=== PATIENT | female | born 1940 | race Caucasian/White ===

== ENCOUNTER 2017-04-28 08:31 | Outpatient (CLI) | payer MEDICARE, MEDICAID ==
[~2017-04-28 08:31] MED LIST: ALBU8.5H8 IH; ATEN25TA PO; BECL7.3A INH; BUSP10TA10 PO; DOCU100C40 PO; DULO20CA50 PO; HYDR-3972 PO; HYDR-569 PO; ISOS30TA6 PO; NICO-687 TD; NITR0.4T SL; ONDA4TAB6 PO; PANT-47 PO; SIMV40TA4 PO; SPIIN INH; SUCR1TAB34 PO; TEMA15CA5 PO; TRAZ-143 PO
[2017-04-28 09:12] LABS: BASOPHILS % (AUTO) 0.7 % (0-1); EOSINOPHILS # (AUTO) 0.2 X10'3 (0-0.9); EOSINOPHILS % (AUTO) 3.4 % (0-6); HEMOGLOBIN 8.9 g/dl (12.0-16.0); LYMPHOCYTES # (AUTO) 0.6 X10'3 (1.1-4.8); LYMPHOCYTES % (AUTO) 12.8 % (21-51); MEAN CORPUSCULAR HEMOGLOBIN 22.9 PG (27.0-31.0); MEAN CORPUSCULAR HGB CONC 30.8 % (33.0-36.5); MEAN CORPUSCULAR VOLUME 74.1 FL (78-98); MEAN PLATELET VOLUME 6.9 FL (7.4-10.4); MONOCYTES # (AUTO) 0.3 X10'3 (0-0.9); MONOCYTES % (AUTO) 7.2 % (2-12); NEUTROPHILS # (AUTO) 3.6 X10'3 (1.8-7.7); NEUTROPHILS % (AUTO) 75.9 % (42-75); PLATELET COUNT 351 X10'3 (140-440); RED BLOOD COUNT 3.91 X10'6 (4.20-5.60); RED CELL DISTRIBUTION WIDTH 22.9 % (11.5-14.5); WHITE BLOOD COUNT 4.8 X10'3 (4.5-11.0)
[2017-04-28 09:51] LABS: ALANINE AMINOTRANSFERASE 16 U/L (12-78); ALBUMIN 3.4 G/DL (3.4-5.0); ALBUMIN/GLOBULIN RATIO 0.9 (1.1-1.5); ALKALINE PHOSPHATASE 126 IU/L (46-116); ANION GAP 8 (8-16); ASPARTATE AMINO TRANSFERASE 19 U/L (10-37); BILIRUBIN,TOTAL 0.3 MG/DL (0.1-1.0); BLOOD UREA NITROGEN 23 MG/DL (7-18); BUN/CREATININE RATIO 16.9 (6.6-38.0); CALCIUM 9.7 MG/DL (8.5-10.1); CHLORIDE 108 MMOL/L (99-107); CHOL/HDL RATIO 3.4 (0.00-4.99); CHOLESTEROL 199 MG/DL (0-200); CREATININE 1.36 MG/DL (0.40-0.90); FERRITIN 16 NG/ML (8-252); GLUCOSE 125 MG/DL (70-104); HDL CHOLESTEROL 59 MG/DL (35-60); LDL CHOLESTEROL 127 MG/DL (50-100); PHOSPHORUS 3.3 MG/DL (2.3-4.5); SODIUM 141 MMOL/L (135-145); TOTAL CARBON DIOXIDE 24.6 MMOL/L (24-32); TOTAL PROTEIN 7.2 G/DL (6.4-8.2); TRIGLYCERIDES 114 MG/DL (20-135); eGFR 38 ML/MIN
[2017-04-28 10:15] LABS: % IRON SATURATION 5 % (11-46); IRON 21 UG/DL (49-151); TOTAL IRON BINDING CAPACITY 426 UG/DL (259-388)
[2017-04-28 13:47] LABS: CLARITY,URINE SLIGHTLY CLOUDY (Clear); COLOR,URINE YELLOW (Yellow); GLUCOSE, URINE NEGATIVE (Neg); KETONES,URINE NEGATIVE (Neg); LEUKOCYTE ESTERASE ,URINE NEGATIVE (Neg); NITRITES, URINE NEGATIVE (Neg); OCCULT BLOOD,URINE NEGATIVE (Neg); PH,URINE 5.5 (4.8-8.0); PROTEIN,URINE NEGATIVE (Neg); UROBILINOGEN,URINE 0.2 E.U/dL (0.2-1.0)
[2017-04-28 13:49] LABS: UA COLLECTION TYPE CLN CATCH MIDSTREAM
[2017-04-28 13:54] LABS: BACTERIA,URINE 4+ /HPF (Neg); RBC,URINE 0-2 /HPF (0-2); SQUAMOUS EPITHELIAL CELL,UR MODERATE /LPF (FEW); WBC,URINE 0-4 /HPF (0-4)
== END 2017-04-28 23:59 | disposition home or self-care (01) ==
LOC: LAB 08:31
PROVIDERS: ATTEND Family Medicine
DX: K92.2 Gastrointestinal hemorrhage, unspecified (principal); E78.00 Pure hypercholesterolemia, unspecified; J44.9 Chronic obstructive pulmonary disease, unspecified; J45.909 Unspecified asthma, uncomplicated; F17.200 Nicotine dependence, unspecified, uncomplicated; I13.0 Hypertensive heart and chronic kidney disease with heart failure and stage 1 through stage 4 chronic kidney disease, or unspecified chronic kidney disease; I50.9 Heart failure, unspecified; N18.9 Chronic kidney disease, unspecified; Z95.5 Presence of coronary angioplasty implant and graft; Z98.890 Other specified postprocedural states; Z80.8 Family history of malignant neoplasm of other organs or systems; Z90.710 Acquired absence of both cervix and uterus; Z83.49 Family history of other endocrine, nutritional and metabolic diseases
CPT/HCPCS: 36415; 80053; 80061; 81001; 82728; 83540; 83550; 84100; 84466; 85025; 85651; 87088

== ENCOUNTER 2017-08-20 13:19 | Outpatient (CLI) | payer MEDICARE, MEDICAID ==
[2017-08-20 14:31] LABS: BASOPHILS # (AUTO) 0.1 X10'3 (0-0.2); BASOPHILS % (AUTO) 0.9 % (0-1); EOSINOPHILS # (AUTO) 0.2 X10'3 (0-0.9); EOSINOPHILS % (AUTO) 3.9 % (0-6); HEMATOCRIT 32.8 % (35.0-45.0); HEMOGLOBIN 10.9 g/dl (12.0-16.0); LYMPHOCYTES # (AUTO) 1.1 X10'3 (1.1-4.8); LYMPHOCYTES % (AUTO) 18.9 % (21-51); MEAN CORPUSCULAR HEMOGLOBIN 27.4 PG (27.0-31.0); MEAN CORPUSCULAR HGB CONC 33.3 % (33.0-36.5); MEAN CORPUSCULAR VOLUME 82.2 FL (78-98); MEAN PLATELET VOLUME 7.6 FL (7.4-10.4); MONOCYTES # (AUTO) 0.5 X10'3 (0-0.9); MONOCYTES % (AUTO) 7.9 % (2-12); NEUTROPHILS % (AUTO) 68.4 % (42-75); PLATELET COUNT 224 X10'3 (140-440); RED BLOOD COUNT 3.98 X10'6 (4.20-5.60); RED CELL DISTRIBUTION WIDTH 19.8 % (11.5-14.5); WHITE BLOOD COUNT 5.8 X10'3 (4.5-11.0)
[2017-08-20 14:41] LABS: % IRON SATURATION 16 % (11-46); IRON 64 UG/DL (49-151); TOTAL IRON BINDING CAPACITY 399 UG/DL (259-388)
[2017-08-20 15:02] LABS: ALBUMIN 3.4 G/DL (3.4-5.0); ALKALINE PHOSPHATASE 113 IU/L (46-116); ANION GAP 10 (8-16); ASPARTATE AMINO TRANSFERASE 15 U/L (10-37); BILIRUBIN,TOTAL 0.4 MG/DL (0.1-1.0); BLOOD UREA NITROGEN 23 MG/DL (7-18); BUN/CREATININE RATIO 17.3 (6.6-38.0); C-REACTIVE PROTEIN 0.24 MG/DL (0.0-0.5); CALCIUM 9.1 MG/DL (8.5-10.1); CHLORIDE 103 MMOL/L (99-107); CHOL/HDL RATIO 3.5 (0.00-4.99); CHOLESTEROL 191 MG/DL (0-200); CREATININE 1.33 MG/DL (0.40-0.90); FERRITIN 24 NG/ML (8-252); GLUCOSE 74 MG/DL (70-104); HDL CHOLESTEROL 54 MG/DL (35-60); LDL CHOLESTEROL 120 MG/DL (50-100); PHOSPHORUS 3.4 MG/DL (2.3-4.5); POTASSIUM 4.4 MMOL/L (3.5-5.1); SODIUM 138 MMOL/L (135-145); TOTAL CARBON DIOXIDE 24.8 MMOL/L (24-32); TOTAL PROTEIN 6.8 G/DL (6.4-8.2); TRIGLYCERIDES 95 MG/DL (20-135); eGFR 39 ML/MIN
[2017-08-20 15:12] LABS: ALANINE AMINOTRANSFERASE 10 U/L (12-78)
[2017-08-20 16:45] LABS: TOTAL PROTEIN,URINE RANDOM 22.1 MG/DL; UA PROTEIN/CREATININE RATIO 0.19 mg/mg Cr (0-0.16)
== END 2017-08-20 23:59 | disposition home or self-care (01) ==
LOC: LAB 13:19
PROVIDERS: ATTEND Family Medicine
DX: M17.9 Osteoarthritis of knee, unspecified (principal); I13.0 Hypertensive heart and chronic kidney disease with heart failure and stage 1 through stage 4 chronic kidney disease, or unspecified chronic kidney disease; N18.9 Chronic kidney disease, unspecified; I50.9 Heart failure, unspecified; I25.10 Atherosclerotic heart disease of native coronary artery without angina pectoris; E78.5 Hyperlipidemia, unspecified; E78.00 Pure hypercholesterolemia, unspecified; K21.9 Gastro-esophageal reflux disease without esophagitis; K52.9 Noninfective gastroenteritis and colitis, unspecified; R63.4 Abnormal weight loss; M85.88 Other specified disorders of bone density and structure, other site; R42 Dizziness and giddiness; J44.9 Chronic obstructive pulmonary disease, unspecified; Z87.891 Personal history of nicotine dependence
CPT/HCPCS: 36415; 80053; 80061; 82043; 82306; 82570; 82607; 82728; 82746; 83540; 83550; 84100; 84156; 84466; 84550; 85025; 85651; 86140

== ENCOUNTER 2017-09-01 14:15 | Inpatient (IN) | payer MEDICARE, MEDICAID ==
[~2017-09-01] VITALS: Ht 165.1 cm; Wt 63.0 kg
[2017-09-01 15:29] LABS: BASOPHILS % (AUTO) 0.6 % (0-1); EOSINOPHILS # (AUTO) 0.2 X10'3 (0-0.9); EOSINOPHILS % (AUTO) 2.8 % (0-6); HEMATOCRIT 34.1 % (35.0-45.0); HEMOGLOBIN 11.1 g/dl (12.0-16.0); LYMPHOCYTES # (AUTO) 1.3 X10'3 (1.1-4.8); LYMPHOCYTES % (AUTO) 17.4 % (21-51); MEAN CORPUSCULAR HEMOGLOBIN 27.4 PG (27.0-31.0); MEAN CORPUSCULAR HGB CONC 32.6 % (33.0-36.5); MEAN CORPUSCULAR VOLUME 83.9 FL (78-98); MEAN PLATELET VOLUME 7.2 FL (7.4-10.4); MONOCYTES # (AUTO) 0.7 X10'3 (0-0.9); NEUTROPHILS # (AUTO) 5.2 X10'3 (1.8-7.7); NEUTROPHILS % (AUTO) 70.2 % (42-75); PLATELET COUNT 229 X10'3 (140-440); RED BLOOD COUNT 4.06 X10'6 (4.20-5.60); RED CELL DISTRIBUTION WIDTH 20.5 % (11.5-14.5); WHITE BLOOD COUNT 7.4 X10'3 (4.5-11.0)
[2017-09-01 15:45] LABS: ALANINE AMINOTRANSFERASE 13 U/L (12-78); ALBUMIN 3.3 G/DL (3.4-5.0); ALBUMIN/GLOBULIN RATIO 0.9 (1.1-1.5); ALKALINE PHOSPHATASE 106 IU/L (46-116); ANION GAP 14 (8-16); ASPARTATE AMINO TRANSFERASE 14 U/L (10-37); BILIRUBIN,TOTAL 0.3 MG/DL (0.1-1.0); BLOOD UREA NITROGEN 39 MG/DL (7-18); BUN/CREATININE RATIO 28.9 (6.6-38.0); CALCIUM 9.6 MG/DL (8.5-10.1); CHLORIDE 112 MMOL/L (99-107); CREATININE 1.35 MG/DL (0.40-0.90); GLUCOSE 127 MG/DL (70-104); POTASSIUM 4.1 MMOL/L (3.5-5.1); SODIUM 147 MMOL/L (135-145); TOTAL CARBON DIOXIDE 21.3 MMOL/L (24-32); TOTAL PROTEIN 6.9 G/DL (6.4-8.2); eGFR 38 ML/MIN
[2017-09-01 16:13] LABS: D-DIMER 4.17 MG/L FEU (0-0.50)
[2017-09-01] MEDS ORDERED: normal saline 1000ML IV soln IVB ONE (16:15)
[2017-09-01] MEDS ORDERED: ipratropium/albuterol 3ml nebule NEB ONE (16:15)
[2017-09-01] MEDS ORDERED: methylPREDNISolone sod succ 125mg/2ml vial IV ONE (16:15)
[2017-09-01] MEDS ORDERED: nitroGLYCERIN 1gm ointment UD TP ONE (16:15)
[2017-09-01] MEDS ORDERED: morphine 4 MG/ML inj SYRINge IV ONE (16:30)
[2017-09-01] MEDS ORDERED: ondansetron/PF 4mg/2ml inj IV PRN (16:30)
[2017-09-01] MEDS ORDERED: acetaminophen 325mg tablet PO PRN (16:30)
[2017-09-01] MEDS ORDERED: mag hydrox/Alum hydrox/simeth 30ml oral suspension PO PRN (16:30)
[2017-09-01] MEDS ORDERED: magnesium hydroxide 30ml (MOM) UD suspension PO PRN (16:30)
[2017-09-01] MEDS ORDERED: ipratropium/albuterol 3ml nebule NEB PRN (16:30)
[2017-09-01] MEDS ORDERED: aspirin 81mg tab.chew PO ONE (16:35)
[2017-09-01] MEDS ORDERED: LORazepam 2 mg/ml vial IV ONE (16:35)
[2017-09-01] MEDS ORDERED: temazepam 15mg capsule PO PRN (17:15)
[2017-09-01] MEDS ORDERED: nitroGLYCERIN 0.4mg SUBLingual tab SL PRN (17:15)
[2017-09-01] MEDS: pantoprazole 40mg Tablet.DR PO SCH (17:31)
[2017-09-01 18:17] LABS: CLARITY,URINE SLIGHTLY CLOUDY (Clear); COLOR,URINE STRAW (Yellow); GLUCOSE, URINE NEGATIVE (Neg); KETONES,URINE NEGATIVE (Neg); LEUKOCYTE ESTERASE ,URINE NEGATIVE (Neg); NITRITES, URINE NEGATIVE (Neg); OCCULT BLOOD,URINE NEGATIVE (Neg); PROTEIN,URINE NEGATIVE (Neg); UROBILINOGEN,URINE 0.2 E.U/dL (0.2-1.0)
[2017-09-01 18:18] LABS: UA COLLECTION TYPE STRAIGHT CATH
[2017-09-01 18:20] LABS: MAGNESIUM 2.2 MG/DL (1.5-2.4)
[2017-09-01 18:23] LABS: HYALINE CASTS 0-3 /LPF (NEGATIVE); SQUAMOUS EPITHELIAL CELL,UR FEW /LPF (FEW)
[2017-09-01 18:24] LABS: MUCUS STRANDS NONE SEEN /LPF (Neg); TRANSITIONAL EPI CELLS,URINE FEW /HPF; WBC,URINE 0-4 /HPF (0-4)
[2017-09-01 18:30] LABS: RBC,URINE NONE SEEN /HPF (0-2)
[2017-09-01 18:35] LABS: BACTERIA,URINE 4+ /HPF (Neg)
[2017-09-01] MEDS: docusate sod 100mg capsule PO SCH (20:16)
[2017-09-01] MEDS: methylPREDNISolone sod succ 125mg/2ml vial IV SCH (20:16)
[2017-09-01] MEDS: sucralfate 1 gm tablet PO SCH (20:16)
[2017-09-01] MEDS: doxycycline inj 100 MG in normal saline 100ml IV soln 100 ML IV SCH (20:32)
[2017-09-01] MEDS ORDERED: traZODone 50mg tablet PO SCH (21:00)
[2017-09-01 21:45] VITALS: BP 120/69
[2017-09-02] VITALS: BP 105/54
[2017-09-02] MEDS: sucralfate 1 gm tablet PO SCH ×3 (01:52→14:01)
[2017-09-02] MEDS: methylPREDNISolone sod succ 125mg/2ml vial IV SCH ×4 (01:52→14:11)
[2017-09-02] MEDS: busPIRone 5mg tablet PO PRN ×2 (02:15→08:48)
[2017-09-02 05:21] LABS: BASOPHILS % (AUTO) 0 % (0-1); EOSINOPHILS % (AUTO) 0 % (0-6); HEMATOCRIT 33.3 % (35.0-45.0); HEMOGLOBIN 10.7 g/dl (12.0-16.0); LYMPHOCYTES # (AUTO) 0.5 X10'3 (1.1-4.8); LYMPHOCYTES % (AUTO) 9.8 % (21-51); MEAN CORPUSCULAR HEMOGLOBIN 27.4 PG (27.0-31.0); MEAN CORPUSCULAR HGB CONC 32.1 % (33.0-36.5); MEAN CORPUSCULAR VOLUME 85.4 FL (78-98); MONOCYTES % (AUTO) 0.5 % (2-12); NEUTROPHILS # (AUTO) 4.9 X10'3 (1.8-7.7); NEUTROPHILS % (AUTO) 89.7 % (42-75); PLATELET COUNT 205 X10'3 (140-440); RED CELL DISTRIBUTION WIDTH 20.9 % (11.5-14.5); WHITE BLOOD COUNT 5.5 X10'3 (4.5-11.0)
[2017-09-02 06:01] LABS: ALANINE AMINOTRANSFERASE 14 U/L (12-78); ALBUMIN 3.1 G/DL (3.4-5.0); ALBUMIN/GLOBULIN RATIO 0.9 (1.1-1.5); ALKALINE PHOSPHATASE 98 IU/L (46-116); ANION GAP 11 (8-16); ASPARTATE AMINO TRANSFERASE 16 U/L (10-37); BILIRUBIN,TOTAL 0.3 MG/DL (0.1-1.0); BLOOD UREA NITROGEN 39 MG/DL (7-18); BUN/CREATININE RATIO 28.7 (6.6-38.0); CALCIUM 9.6 MG/DL (8.5-10.1); CHLORIDE 112 MMOL/L (99-107); CHOLESTEROL 189 MG/DL (0-200); CREATININE 1.36 MG/DL (0.40-0.90); GLUCOSE 153 MG/DL (70-104); HDL CHOLESTEROL 63 MG/DL (35-60); LDL CHOLESTEROL 111 MG/DL (50-100); POTASSIUM 4.7 MMOL/L (3.5-5.1); SODIUM 145 MMOL/L (135-145); TOTAL CARBON DIOXIDE 22.1 MMOL/L (24-32); TOTAL PROTEIN 6.7 G/DL (6.4-8.2); TRIGLYCERIDES 53 MG/DL (20-135); eGFR 38 ML/MIN
[2017-09-02 08:00] VITALS: BP 159/102
[2017-09-02] MEDS ORDERED: isosorbide mononitrate 30mg tab.SR.24H PO SCH (08:00)
[2017-09-02] MEDS ORDERED: fluticasone furoate 100MCG/puff inhaler IH SCH (08:00)
[2017-09-02] MEDS ORDERED: enoxaparin 40mg/0.4ml syringe SQ SCH (08:00)
[2017-09-02] MEDS ORDERED: duloxetine 20mg capsule.DR PO SCH (08:00)
[2017-09-02] MEDS ORDERED: atorvastatin 20mg tablet PO SCH (08:00)
[2017-09-02] MEDS ORDERED: atenolol 25mg tablet PO SCH (08:00)
[2017-09-02] MEDS ORDERED: enoxaparin 40mg/0.4ml syringe SUBCUT ONE (08:20)
[2017-09-02] MEDS: doxycycline inj 100 MG in normal saline 100ml IV soln 100 ML IV SCH (08:38)
[2017-09-02] MEDS: pantoprazole 40mg Tablet.DR PO SCH (08:39)
[2017-09-02] MEDS: docusate sod 100mg capsule PO SCH (08:39)
[2017-09-02] MEDS: HYDROcodone/acetaminophen 10/325mg tab PO PRN ×2 (08:49→14:03)
[2017-09-02 11:01] VITALS: BP 114/69
[2017-09-02] MEDS ORDERED: UMEC62.5 INH (11:55)
[2017-09-02] MEDS ORDERED: HYDR-3972 PO (16:40)
[2017-09-02] MEDS ORDERED: PRED10TA23 PO (16:40)
[2017-09-02] MEDS ORDERED: DOXY-200 PO (16:40)
[2017-09-02] MEDS ORDERED: doxycycline hyclate 100mg tablet.DR PO SCH (17:30)
[2017-09-02] MEDS ORDERED: enoxaparin 60mg/0.6ml syringe SUBCUT SCH (20:00)
== END 2017-09-02 18:05 | disposition home or self-care (01) | DRG 191 ==
LOC: ER 14:16 → ED HOLD 16:30 → SUR 3N 21:45
PROVIDERS: ADMIT Family Medicine; ATTEND Family Medicine
PROC: CB221ZZ Tomographic (Tomo) Nuclear Medicine Imaging of Lungs and Bronchi using Technetium 99m (Tc-99m) (ICD-10-PCS; principal; 2017-09-02)
DX: J44.1 Chronic obstructive pulmonary disease with (acute) exacerbation (principal); N17.9 Acute kidney failure, unspecified; E78.5 Hyperlipidemia, unspecified; F17.210 Nicotine dependence, cigarettes, uncomplicated; F41.9 Anxiety disorder, unspecified; I12.9 Hypertensive chronic kidney disease with stage 1 through stage 4 chronic kidney disease, or unspecified chronic kidney disease; I25.10 Atherosclerotic heart disease of native coronary artery without angina pectoris; G89.29 Other chronic pain; M19.90 Unspecified osteoarthritis, unspecified site; R00.0 Tachycardia, unspecified; M54.9 Dorsalgia, unspecified; I71.4 Abdominal aortic aneurysm, without rupture; K21.9 Gastro-esophageal reflux disease without esophagitis; N18.3 Chronic kidney disease, stage 3 (moderate); R79.1 Abnormal coagulation profile; I25.2 Old myocardial infarction; Z79.899 Other long term (current) drug therapy; Z86.73 Personal history of transient ischemic attack (TIA), and cerebral infarction without residual deficits; Z87.442 Personal history of urinary calculi; Z90.710 Acquired absence of both cervix and uterus; Z88.0 Allergy status to penicillin; Z88.6 Allergy status to analgesic agent; Z81.1 Family history of alcohol abuse and dependence; Z80.9 Family history of malignant neoplasm, unspecified; Z98.51 Tubal ligation status; Z71.6 Tobacco abuse counseling
CPT/HCPCS: 36415; 71046; 78582; 80053; 80061; 81001; 83605; 83735; 83880; 84145; 84484; 85025; 85379; 87040; 87070; 87077; 87088; 93005; 93306; 94640; 94760; A4353; A9539; A9540; J1650; J2060; J2270; J2930; J3490; J7030

== ENCOUNTER 2018-01-06 11:25 | Emergency (ER) | payer MEDICARE, MEDICAID ==
[~2018-01-06] VITALS: Ht 167.6 cm; Wt 60.6 kg
[~2018-01-06 11:25] MED LIST changes: -ATEN25TA PO; -BECL7.3A INH; +DOXY-200 PO; -HYDR-569 PO; -NICO-687 TD; -ONDA4TAB6 PO; -SPIIN INH; -TEMA15CA5 PO; -TRAZ-143 PO; +TRAZ-218 PO; +UMEC62.5 INH
[2018-01-06 11:55] LABS: BASOPHILS # (AUTO) 0.1 X10'3 (0-0.2); BASOPHILS % (AUTO) 0.8 % (0-1); EOSINOPHILS # (AUTO) 0.2 X10'3 (0-0.9); EOSINOPHILS % (AUTO) 2.3 % (0-6); HEMATOCRIT 42.3 % (35.0-45.0); HEMOGLOBIN 13.8 g/dl (12.0-16.0); LYMPHOCYTES # (AUTO) 1.1 X10'3 (1.1-4.8); LYMPHOCYTES % (AUTO) 14.5 % (21-51); MEAN CORPUSCULAR HEMOGLOBIN 28.7 PG (27.0-31.0); MEAN CORPUSCULAR HGB CONC 32.7 % (33.0-36.5); MEAN CORPUSCULAR VOLUME 87.6 FL (78-98); MEAN PLATELET VOLUME 7.6 FL (7.4-10.4); MONOCYTES # (AUTO) 0.5 X10'3 (0-0.9); NEUTROPHILS # (AUTO) 5.8 X10'3 (1.8-7.7); NEUTROPHILS % (AUTO) 76.4 % (42-75); PLATELET COUNT 282 X10'3 (140-440); RED BLOOD COUNT 4.83 X10'6 (4.20-5.60); RED CELL DISTRIBUTION WIDTH 18.7 % (11.5-14.5); WHITE BLOOD COUNT 7.6 X10'3 (4.5-11.0)
[2018-01-06] MEDS ORDERED: acetaminophen 325mg tablet PO ONE (12:00)
[2018-01-06] MEDS ORDERED: ondansetron 4mg rapidly disintigrating tab PO ONE (12:00)
[2018-01-06] MEDS ORDERED: HYDROcodone/acetaminophen 5mg/325mg tablet PO ONE ×2 (12:00→15:00)
[2018-01-06 12:16] LABS: PROTHROMBIN TIME 10.1 SECONDS (9.0-12.0)
[2018-01-06 12:17] LABS: ALBUMIN 3.9 G/DL (3.4-5.0); ALKALINE PHOSPHATASE 133 IU/L (46-116); ANION GAP 12 (8-16); ASPARTATE AMINO TRANSFERASE 15 U/L (10-37); BILIRUBIN,TOTAL 0.4 MG/DL (0.1-1.0); BLOOD UREA NITROGEN 22 MG/DL (7-18); BUN/CREATININE RATIO 13.4 (6.6-38.0); CALCIUM 10.8 MG/DL (8.5-10.1); CHLORIDE 105 MMOL/L (99-107); CREATININE 1.64 MG/DL (0.40-0.90); GLUCOSE 135 MG/DL (70-104); SODIUM 139 MMOL/L (135-145); TOTAL CARBON DIOXIDE 22.1 MMOL/L (24-32); eGFR 30 ML/MIN
[2018-01-06 12:18] LABS: ALANINE AMINOTRANSFERASE < 6 U/L (12-78)
[2018-01-06 12:19] LABS: D-DIMER 5.69 MG/L FEU (0-0.50); PARTIAL THROMBOPLASTIN TIME 23 SECONDS (22-32)
[2018-01-06] MEDS ORDERED: LORazepam 2 mg/ml vial IV ONE ×2 (12:35→15:00)
[2018-01-06 13:23] LABS: ANISOCYTOSIS 2+; PLATELET ESTIMATE NORMAL; POIKILOCYTOSIS 1+
[2018-01-06 13:24] LABS: ELLIPTOCYTES 1+
[2018-01-06 16:55] VITALS: BP 173/106
== END 2018-01-06 16:56 | disposition home or self-care (01) ==
LOC: ER 11:26
DX: M71.22 Synovial cyst of popliteal space [Baker], left knee (principal); R06.02 Shortness of breath; I25.10 Atherosclerotic heart disease of native coronary artery without angina pectoris; I25.2 Old myocardial infarction; J44.9 Chronic obstructive pulmonary disease, unspecified; M19.90 Unspecified osteoarthritis, unspecified site; G89.29 Other chronic pain; M54.9 Dorsalgia, unspecified; Z90.710 Acquired absence of both cervix and uterus; Z90.89 Acquired absence of other organs; Z98.51 Tubal ligation status; Z95.1 Presence of aortocoronary bypass graft; Z88.6 Allergy status to analgesic agent; Z88.0 Allergy status to penicillin
CPT/HCPCS: 36415; 71045; 78582; 80053; 84484; 85025; 85379; 85610; 85730; 93005; 93970; 96374; 96376; 99285; A9539; A9540; J2060

== ENCOUNTER 2018-02-24 08:05 | Outpatient (CLI) | payer MEDICARE, MEDICAID ==
[2018-02-24] VITALS (8 sets, daily range): BP systolic 100–123; BP diastolic 41–57
[~2018-02-24] VITALS: Ht 167.6 cm; Wt 63.0 kg
[2018-02-24] MEDS ORDERED: regadenoson 0.4mg/5ml syringe IV ONE ×2 (09:20→10:13)
[2018-02-24] MEDS ORDERED: aminophylline 250mg/10ml inj. IV PRN (09:20)
[2018-02-24] MEDS ORDERED: nitroGLYCERIN 0.4mg SUBLingual tab SL PRN (09:20)
== END 2018-02-24 23:59 | disposition home or self-care (01) ==
LOC: RAD 08:05
PROVIDERS: ATTEND Internal Medicine Cardiovascular Disease
DX: I25.10 Atherosclerotic heart disease of native coronary artery without angina pectoris (principal); E78.5 Hyperlipidemia, unspecified; F17.200 Nicotine dependence, unspecified, uncomplicated; I11.0 Hypertensive heart disease with heart failure; I50.9 Heart failure, unspecified; J44.9 Chronic obstructive pulmonary disease, unspecified; I25.2 Old myocardial infarction; Z90.710 Acquired absence of both cervix and uterus; Z98.61 Coronary angioplasty status
CPT/HCPCS: 78452; 93017; A9500

== ENCOUNTER 2018-03-10 12:17 | Outpatient (CLI) | payer MEDICARE, MEDICAID ==
[2018-03-10 13:16] LABS: TOTAL HEMOGLOBIN 12.7 G/dl (12.0-16.0)
== END 2018-03-10 23:59 | disposition home or self-care (01) ==
LOC: RT 12:17
PROVIDERS: ATTEND Internal Medicine Pulmonary Disease
DX: J44.9 Chronic obstructive pulmonary disease, unspecified (principal); I71.4 Abdominal aortic aneurysm, without rupture; I25.2 Old myocardial infarction; I10 Essential (primary) hypertension; F17.200 Nicotine dependence, unspecified, uncomplicated; Z88.0 Allergy status to penicillin; Z88.6 Allergy status to analgesic agent; Z90.710 Acquired absence of both cervix and uterus
CPT/HCPCS: 85018; 94010; 94729

== ENCOUNTER 2018-04-22 12:13 | Emergency (ER) | payer MEDICARE, MEDICAID ==
[~2018-04-22] VITALS: Ht 167.6 cm; Wt 68.2 kg
[2018-04-22] MEDS ORDERED: enalaprilat dihydrate 2.5mg/2ml vial IV ONE (12:50)
--- NOTE | 2018-04-22 13:08 | NUR ---
faxed for med rec from [place] [id number]
[2018-04-22] MEDS ORDERED: CLOP75TA35 PO (13:27)
[2018-04-22] MEDS ORDERED: NICO-687 TD (13:27)
[2018-04-22 13:36] LABS: BASOPHILS % (AUTO) 0.5 % (0-1); EOSINOPHILS # (AUTO) 0.2 X10'3 (0-0.9); EOSINOPHILS % (AUTO) 4.6 % (0-6); HEMATOCRIT 33.1 % (35.0-45.0); HEMOGLOBIN 10.8 g/dl (12.0-16.0); LYMPHOCYTES # (AUTO) 0.7 X10'3 (1.1-4.8); LYMPHOCYTES % (AUTO) 13.8 % (21-51); MEAN CORPUSCULAR HEMOGLOBIN 30.1 PG (27.0-31.0); MEAN CORPUSCULAR HGB CONC 32.6 % (33.0-36.5); MEAN CORPUSCULAR VOLUME 92.4 FL (78-98); MEAN PLATELET VOLUME 7.3 FL (7.4-10.4); MONOCYTES # (AUTO) 0.4 X10'3 (0-0.9); MONOCYTES % (AUTO) 7.3 % (2-12); NEUTROPHILS # (AUTO) 3.7 X10'3 (1.8-7.7); NEUTROPHILS % (AUTO) 73.8 % (42-75); PLATELET COUNT 304 X10'3 (140-440); RED BLOOD COUNT 3.58 X10'6 (4.20-5.60); RED CELL DISTRIBUTION WIDTH 16.7 % (11.5-14.5)
[2018-04-22 13:41] LABS: ALANINE AMINOTRANSFERASE 12 U/L (12-78); ALBUMIN 3.2 G/DL (3.4-5.0); ALBUMIN/GLOBULIN RATIO 0.8 (1.1-1.5); ALKALINE PHOSPHATASE 160 IU/L (46-116); ANION GAP 14 (8-16); BILIRUBIN,TOTAL 0.6 MG/DL (0.1-1.0); BLOOD UREA NITROGEN 38 MG/DL (7-18); BUN/CREATININE RATIO 18.9 (6.6-38.0); CALCIUM 9.1 MG/DL (8.5-10.1); CHLORIDE 105 MMOL/L (99-107); CREATININE 2.01 MG/DL (0.40-0.90); GLUCOSE 86 MG/DL (70-104); SODIUM 139 MMOL/L (135-145); TOTAL CARBON DIOXIDE 20.2 MMOL/L (24-32); TOTAL PROTEIN 7.2 G/DL (6.4-8.2); eGFR 24 ML/MIN
[2018-04-22 13:43] LABS: ASPARTATE AMINO TRANSFERASE 26 U/L (10-37); POTASSIUM 4.8 MMOL/L (3.5-5.1)
[2018-04-22 13:56] VITALS: BP 114/65
[2018-04-22] MEDS ORDERED: CARV3.122 PO (15:24)
== END 2018-04-22 15:35 | disposition home or self-care (01) ==
LOC: ER 12:13
DX: I10 Essential (primary) hypertension (principal); I25.10 Atherosclerotic heart disease of native coronary artery without angina pectoris; I25.2 Old myocardial infarction; J44.9 Chronic obstructive pulmonary disease, unspecified; M19.90 Unspecified osteoarthritis, unspecified site; G89.29 Other chronic pain; Z98.61 Coronary angioplasty status; Z90.49 Acquired absence of other specified parts of digestive tract; Z90.710 Acquired absence of both cervix and uterus; Z90.89 Acquired absence of other organs; Z98.890 Other specified postprocedural states; Z98.51 Tubal ligation status; Z88.0 Allergy status to penicillin; Z88.6 Allergy status to analgesic agent; Z79.899 Other long term (current) drug therapy; Z60.2 Problems related to living alone
CPT/HCPCS: 36415; 80053; 85025; 93005; 96374; 99284

== ENCOUNTER 2018-05-11 12:55 | Emergency (ER) | payer MEDICARE, MEDICAID ==
[~2018-05-11] VITALS: Ht 167.6 cm; Wt 68.0 kg
[~2018-05-11 12:55] MED LIST changes: +CARV3.122 PO; +CLOP75TA35 PO; -DOXY-200 PO; -DULO20CA50 PO; +NICO-687 TD; -SUCR1TAB34 PO; -TRAZ-218 PO
[2018-05-11 13:29] LABS: BASOPHILS % (AUTO) 0.7 % (0-1); EOSINOPHILS # (AUTO) 0.1 X10'3 (0-0.9); HEMOGLOBIN 10.6 g/dl (12.0-16.0); LYMPHOCYTES % (AUTO) 15.1 % (21-51); MEAN CORPUSCULAR HEMOGLOBIN 29.6 PG (27.0-31.0); MEAN CORPUSCULAR VOLUME 92.3 FL (78-98); MEAN PLATELET VOLUME 8.3 FL (7.4-10.4); MONOCYTES # (AUTO) 0.6 X10'3 (0-0.9); MONOCYTES % (AUTO) 9.2 % (2-12); NEUTROPHILS # (AUTO) 4.6 X10'3 (1.8-7.7); PLATELET COUNT 171 X10'3 (140-440); RED BLOOD COUNT 3.58 X10'6 (4.20-5.60); RED CELL DISTRIBUTION WIDTH 15.3 % (11.5-14.5); WHITE BLOOD COUNT 6.3 X10'3 (4.5-11.0)
[2018-05-11] MEDS ORDERED: ondansetron/PF 4mg/2ml inj IV ONE (13:30)
[2018-05-11] MEDS ORDERED: morphine 4 MG/ML inj SYRINge IV ONE ×2 (13:30→16:35)
--- NOTE | 2018-05-11 13:37 | NUR ---
gave pt a sandwich
[2018-05-11 13:46] LABS: ALANINE AMINOTRANSFERASE 10 U/L (12-78); ALBUMIN 3.1 G/DL (3.4-5.0); ALBUMIN/GLOBULIN RATIO 0.9 (1.1-1.5); ALKALINE PHOSPHATASE 123 IU/L (46-116); ANION GAP 13 (8-16); ASPARTATE AMINO TRANSFERASE 15 U/L (10-37); BILIRUBIN,TOTAL 0.6 MG/DL (0.1-1.0); BLOOD UREA NITROGEN 29 MG/DL (7-18); BUN/CREATININE RATIO 13.8 (6.6-38.0); CHLORIDE 105 MMOL/L (99-107); GLUCOSE 110 MG/DL (70-104); POTASSIUM 4.1 MMOL/L (3.5-5.1); SODIUM 138 MMOL/L (135-145); TOTAL CARBON DIOXIDE 20.3 MMOL/L (24-32); TOTAL PROTEIN 6.6 G/DL (6.4-8.2); eGFR 23 ML/MIN
[2018-05-11 13:52] LABS: MAGNESIUM 2.1 MG/DL (1.5-2.4)
[2018-05-11] MEDS ORDERED: furosemide 10 MG/1 ML 10ml inj IV ONE (14:25)
[2018-05-11 16:57] VITALS: BP 193/88
== END 2018-05-11 17:03 | disposition home or self-care (01) ==
LOC: ER 12:55
DX: R07.89 Other chest pain (principal); I25.10 Atherosclerotic heart disease of native coronary artery without angina pectoris; I25.2 Old myocardial infarction; J44.9 Chronic obstructive pulmonary disease, unspecified; M19.90 Unspecified osteoarthritis, unspecified site; G89.29 Other chronic pain; Z95.5 Presence of coronary angioplasty implant and graft; Z90.49 Acquired absence of other specified parts of digestive tract; Z98.890 Other specified postprocedural states; Z90.710 Acquired absence of both cervix and uterus; Z98.51 Tubal ligation status; Z90.89 Acquired absence of other organs; Z88.0 Allergy status to penicillin; Z88.6 Allergy status to analgesic agent; Z79.899 Other long term (current) drug therapy
CPT/HCPCS: 36415; 71045; 71250; 74176; 80053; 83735; 83880; 84484; 85025; 93005; 96374; 96375; 99284; J1940; J2270; J2405

== ENCOUNTER 2018-06-03 13:18 | Inpatient (IN) | payer MEDICARE, MEDICAID | END 2018-06-11 16:45 | disposition home or self-care (01) | LOC: ER 13:18 → ED HOLD 18:33 → PCU 3S 19:55 | DX: K29.71 Gastritis, unspecified, with bleeding (principal); N17.0 Acute kidney failure with tubular necrosis; I13.0 Hypertensive heart and chronic kidney disease with heart failure and stage 1 through stage 4 chronic kidney disease, or unspecified chronic kidney disease; N18.4 Chronic kidney disease, stage 4 (severe); K20.9 Esophagitis, unspecified; I50.9 Heart failure, unspecified; I71.4 Abdominal aortic aneurysm, without rupture ==

== ENCOUNTER 2018-06-15 04:58 | Emergency (ER) | payer MEDICARE, MEDICAID ==
[~2018-06-15] VITALS: Ht 167.6 cm; Wt 60.0 kg
[~2018-06-15 04:58] MED LIST changes: -ALBU8.5H8 IH; +AMLO5TAB PO; -BUSP10TA10 PO; -CARV3.122 PO; -CLOP75TA35 PO; +DULO60CA45 PO; +FERR325T28 PO; +LACT1CAP26 PO; +LORA0.5T PO; +MELA3TAB PO; +METO-395 PO; +MULT-269 PO; -NICO-687 TD; +ONDA4TAB6 PO; -PANT-47 PO; +PANT40TA4 PO; -UMEC62.5 INH
--- NOTE | 2018-06-15 05:07 | NUR ---
patient placed in lobby with 02 nasal canula until room available per cn
[2018-06-15 06:05] VITALS: BP 166/135
[2018-06-15] MEDS ORDERED: HYDROcodone/acetaminophen 5mg/325mg tablet PO ONE (06:05)
[2018-06-15 06:13] LABS: BASOPHILS # (AUTO) 0.1 X10'3 (0-0.2); BASOPHILS % (AUTO) 0.6 % (0-1); EOSINOPHILS # (AUTO) 0.3 X10'3 (0-0.9); HEMATOCRIT 25.3 % (35.0-45.0); HEMOGLOBIN 8.4 g/dl (12.0-16.0); LYMPHOCYTES # (AUTO) 0.7 X10'3 (1.1-4.8); LYMPHOCYTES % (AUTO) 8.1 % (21-51); MEAN CORPUSCULAR HEMOGLOBIN 28.3 PG (27.0-31.0); MEAN CORPUSCULAR HGB CONC 33.1 g/dL (33.0-36.5); MEAN CORPUSCULAR VOLUME 85.7 FL (78-98); MEAN PLATELET VOLUME 7.5 FL (7.4-10.4); MONOCYTES # (AUTO) 0.8 X10'3 (0-0.9); MONOCYTES % (AUTO) 8.8 % (2-12); NEUTROPHILS # (AUTO) 6.8 X10'3 (1.8-7.7); NEUTROPHILS % (AUTO) 78.5 % (42-75); PLATELET COUNT 353 X10'3 (140-440); RED BLOOD COUNT 2.95 X10'6 (4.20-5.60); WHITE BLOOD COUNT 8.7 X10'3 (4.5-11.0)
[2018-06-15] MEDS ORDERED: normal saline 1000ml 1,000 ML IV ONE (06:15)
[2018-06-15 06:29] LABS: ALANINE AMINOTRANSFERASE 13 U/L (12-78); ALBUMIN 2.3 G/DL (3.4-5.0); ALBUMIN/GLOBULIN RATIO 0.6 (1.1-1.5); ALKALINE PHOSPHATASE 126 IU/L (46-116); ANION GAP 13 (8-16); ASPARTATE AMINO TRANSFERASE 23 U/L (10-37); BILIRUBIN,TOTAL 0.5 MG/DL (0.1-1.0); BLOOD UREA NITROGEN 76 MG/DL (7-18); BUN/CREATININE RATIO 30.2 (6.6-38.0); CALCIUM 8.8 MG/DL (8.5-10.1); CHLORIDE 102 MMOL/L (99-107); CREATININE 2.52 MG/DL (0.40-0.90); GLUCOSE 122 MG/DL (70-104); POTASSIUM 3.5 MMOL/L (3.5-5.1); SODIUM 139 MMOL/L (135-145); TOTAL CARBON DIOXIDE 24.3 MMOL/L (24-32); TOTAL PROTEIN 6.2 G/DL (6.4-8.2); eGFR 19 ML/MIN
[2018-06-15 06:36] LABS: LIPASE 113 U/L (73-393); MAGNESIUM 1.9 MG/DL (1.5-2.4)
[2018-06-15 06:37] LABS: PARTIAL THROMBOPLASTIN TIME 29 SECONDS (22-32); PROTHROMBIN TIME 10.4 SECONDS (9.0-12.0)
--- NOTE | 2018-06-15 06:43 | NUR ---
md hope ns
[2018-06-15] MEDS ORDERED: furosemide 10 MG/1 ML 10ml inj IV ONE (06:55)
[2018-06-15] MEDS ORDERED: FURO-150 PO (06:57)
== END 2018-06-15 08:04 | disposition home or self-care (01) ==
LOC: ER 04:59
DX: I11.0 Hypertensive heart disease with heart failure (principal); I50.9 Heart failure, unspecified; I25.119 Atherosclerotic heart disease of native coronary artery with unspecified angina pectoris; I25.2 Old myocardial infarction; J44.9 Chronic obstructive pulmonary disease, unspecified; K21.9 Gastro-esophageal reflux disease without esophagitis; G89.29 Other chronic pain; M19.90 Unspecified osteoarthritis, unspecified site; F41.9 Anxiety disorder, unspecified; Z90.49 Acquired absence of other specified parts of digestive tract; Z88.0 Allergy status to penicillin; Z87.442 Personal history of urinary calculi; Z88.5 Allergy status to narcotic agent; Z79.899 Other long term (current) drug therapy; Z86.73 Personal history of transient ischemic attack (TIA), and cerebral infarction without residual deficits; Z98.62 Peripheral vascular angioplasty status; Z90.710 Acquired absence of both cervix and uterus; Z98.51 Tubal ligation status
CPT/HCPCS: 36415; 71046; 80053; 83690; 83735; 83880; 84484; 85025; 85610; 85730; 86885; 86900; 86901; 93005; 96374; 99284; J1940

== ENCOUNTER 2018-07-08 17:23 | Inpatient (IN) | payer MEDICARE, MEDICAID ==
[~2018-07-08] VITALS: Ht 167.6 cm; Wt 61.4 kg
[~2018-07-08 17:23] MED LIST changes: +FURO-150 PO
[2018-07-08] MEDS ORDERED: CEPH-571 PO (18:31)
[2018-07-08] MEDS ORDERED: CLOP75TA33 PO (18:31)
[2018-07-08] MEDS ORDERED: PANT-47 PO (18:31)
[2018-07-08] MEDS ORDERED: FLUT1BLS3 PO (18:31)
[2018-07-08] MEDS ORDERED: UMEC62.5 PO (18:31)
[2018-07-08] MEDS ORDERED: CARV3.122 PO (18:31)
[2018-07-08] MEDS ORDERED: QUET50TA22 PO (18:31)
[2018-07-08] MEDS ORDERED: FURO-150 PO (18:31)
[2018-07-08] MEDS ORDERED: DOCU100C41 PO (18:34)
[2018-07-08] MEDS ORDERED: TRAM50TA2 PO (18:34)
[2018-07-08] MEDS ORDERED: SENN-250 PO (18:34)
[2018-07-08 18:38] LABS: BASOPHILS # (AUTO) 0.1 X10'3 (0-0.2); BASOPHILS % (AUTO) 1.2 % (0-1); EOSINOPHILS % (AUTO) 0.7 % (0-6); HEMATOCRIT 22.9 % (35.0-45.0); HEMOGLOBIN 7.3 g/dl (12.0-16.0); LYMPHOCYTES # (AUTO) 0.5 X10'3 (1.1-4.8); MEAN CORPUSCULAR HEMOGLOBIN 24.5 PG (27.0-31.0); MEAN CORPUSCULAR HGB CONC 31.7 g/dL (33.0-36.5); MEAN CORPUSCULAR VOLUME 77.3 FL (78-98); MEAN PLATELET VOLUME 8.1 FL (7.4-10.4); MONOCYTES # (AUTO) 0.5 X10'3 (0-0.9); MONOCYTES % (AUTO) 10.5 % (2-12); NEUTROPHILS # (AUTO) 3.8 X10'3 (1.8-7.7); NEUTROPHILS % (AUTO) 76.6 % (42-75); PLATELET COUNT 301 X10'3 (140-440); RED BLOOD COUNT 2.96 X10'6 (4.20-5.60); RED CELL DISTRIBUTION WIDTH 19.4 % (11.5-14.5); WHITE BLOOD COUNT 4.9 X10'3 (4.5-11.0)
[2018-07-08 18:45] LABS: ALANINE AMINOTRANSFERASE 13 U/L (12-78); ALBUMIN 2.2 G/DL (3.4-5.0); ALBUMIN/GLOBULIN RATIO 0.5 (1.1-1.5); ALKALINE PHOSPHATASE 263 IU/L (46-116); ANION GAP 15 (8-16); ASPARTATE AMINO TRANSFERASE 28 U/L (10-37); BILIRUBIN,TOTAL 0.9 MG/DL (0.1-1.0); BLOOD UREA NITROGEN 106 MG/DL (7-18); BUN/CREATININE RATIO 27.5 (6.6-38.0); CALCIUM 8.7 MG/DL (8.5-10.1); CHLORIDE 100 MMOL/L (99-107); CREATININE 3.85 MG/DL (0.40-0.90); GLUCOSE 143 MG/DL (70-104); POTASSIUM 4.1 MMOL/L (3.5-5.1); SODIUM 138 MMOL/L (135-145); TOTAL CARBON DIOXIDE 23.5 MMOL/L (24-32); TOTAL PROTEIN 6.3 G/DL (6.4-8.2); eGFR 11 ML/MIN
[2018-07-08 18:48] LABS: INR 1.2 INR; PROTHROMBIN TIME 12.5 SECONDS (9.0-12.0)
[2018-07-08 19:04] LABS: TOTAL CELLS COUNTED 100
[2018-07-08 19:05] LABS: ANISOCYTOSIS 2+; LARGE PLATELETS FEW; MICROCYTOSIS 1+; PLATELET ESTIMATE NORMAL
[2018-07-08 19:24] LABS: CLARITY,URINE SLIGHTLY CLOUDY (Clear); COLOR,URINE YELLOW (Yellow); GLUCOSE, URINE NEGATIVE (Neg); KETONES,URINE NEGATIVE (Neg); LEUKOCYTE ESTERASE ,URINE TRACE (Neg); NITRITES, URINE NEGATIVE (Neg); OCCULT BLOOD,URINE TRACE-LYSED (Neg); PROTEIN,URINE 100 mg/dl (Neg); UROBILINOGEN,URINE 0.2 E.U/dL (0.2-1.0)
[2018-07-08 19:26] LABS: UA COLLECTION TYPE STRAIGHT CATH
[2018-07-08 19:31] LABS: RBC,URINE 0-2 /HPF (0-2); SQUAMOUS EPITHELIAL CELL,UR MANY /LPF (FEW); WBC,URINE 0-4 /HPF (0-4)
[2018-07-08 19:32] LABS: BACTERIA,URINE 2+ /HPF (Neg)
[2018-07-08 19:33] LABS: AMORPHOUS URATES 2+
[2018-07-08] MEDS ORDERED: normal saline 1000ml 1,000 ML IV ONE (20:00)
[2018-07-08] MEDS ORDERED: pantoprazole 40 MG vial IV ONE (20:25)
[2018-07-08] MEDS ORDERED: fentaNYL/PF 50MCG/1 ML 2ML syringe IV ONE (20:45)
[2018-07-08] MEDS: pantoprazole 40MG/NS 100ML BAG 100 ML IV SCH ×2 (20:56→21:09)
[2018-07-08] MEDS ORDERED: ondansetron/PF 4mg/2ml inj IV PRN (21:00)
[2018-07-08] MEDS ORDERED: morphine 2 MG/ML inj. syringe IV PRN (21:00)
[2018-07-08] MEDS ORDERED: magnesium hydroxide 30ml (MOM) UD suspension PO PRN (21:00)
[2018-07-08] MEDS ORDERED: mag hydrox/Alum hydrox/simeth 30ml oral suspension PO PRN (21:00)
[2018-07-08] MEDS ORDERED: metoclopramide 5 mg/ml inj IV PRN (21:00)
[2018-07-08] MEDS ORDERED: acetaminophen 325mg tablet PO PRN (21:00)
[2018-07-08] MEDS ORDERED: morphine 4 MG/ML inj SYRINge IV PRN (21:00)
[2018-07-08] MEDS ORDERED: HYDROcodone/acetaminophen 5mg/325mg tablet PO PRN (21:00)
[2018-07-08 21:04] LABS: OCCULT BLOOD STOOL POSITIVE (Neg)
[2018-07-08] MEDS ORDERED: traMADol 50MG tablet PO PRN (21:10)
[2018-07-08] MEDS ORDERED: sennosides/docusate sodium tablet PO PRN (21:10)
[2018-07-08] MEDS: normal saline 1000ml 1,000 ML IV SCH (21:14)
--- NOTE | 2018-07-08 22:14 | NUR ---
Patient in room ED 3. I have received report from PATRIA Nunez and had the opportunity to ask questions and assume patient care.
[2018-07-08] MEDS ORDERED: QUEtiapine 25mg tablet PO ONE (23:00)
--- NOTE | 2018-07-08 23:00 | NUR ---
Patient recieved from ER, supposed to get 2 PRBC but no consent was signed. Paged to come sign consent, he was not worried about her at this point, and said he would come later to see her.
[2018-07-08] MEDS: HYDROcodone/acetaminophen 10/325mg tab PO PRN (23:53)
[2018-07-09] VITALS (9 sets, daily range): BP systolic 91–138; BP diastolic 53–74
[2018-07-09] MEDS: pantoprazole 40MG/NS 100ML BAG 100 ML IV SCH ×5 (01:36→19:55)
[2018-07-09] MEDS: ipratropium 0.5 MG/2.5ML nebule IH SCH ×2 (03:01→08:12)
[2018-07-09 04:56] LABS: EOSINOPHILS # (AUTO) 0.1 X10'3 (0-0.9); EOSINOPHILS % (AUTO) 1.3 % (0-6); LYMPHOCYTES # (AUTO) 0.6 X10'3 (1.1-4.8); LYMPHOCYTES % (AUTO) 13.3 % (21-51); MEAN CORPUSCULAR HEMOGLOBIN 24.2 PG (27.0-31.0); MEAN CORPUSCULAR HGB CONC 30.8 g/dL (33.0-36.5); MEAN CORPUSCULAR VOLUME 78.6 FL (78-98); MEAN PLATELET VOLUME 8.1 FL (7.4-10.4); MONOCYTES # (AUTO) 0.5 X10'3 (0-0.9); MONOCYTES % (AUTO) 11.8 % (2-12); NEUTROPHILS % (AUTO) 72.6 % (42-75); PLATELET COUNT 240 X10'3 (140-440); RED BLOOD COUNT 2.67 X10'6 (4.20-5.60); RED CELL DISTRIBUTION WIDTH 19.2 % (11.5-14.5); WHITE BLOOD COUNT 4.2 X10'3 (4.5-11.0)
[2018-07-09 04:59] LABS: HEMOGLOBIN 6.5 g/dl (12.0-16.0)
[2018-07-09 05:28] LABS: ALBUMIN 1.9 G/DL (3.4-5.0); ANION GAP 13 (8-16); BLOOD UREA NITROGEN 101 MG/DL (7-18); BUN/CREATININE RATIO 28.5 (6.6-38.0); CALCIUM 8.4 MG/DL (8.5-10.1); CHLORIDE 104 MMOL/L (99-107); CREATININE 3.54 MG/DL (0.40-0.90); GLUCOSE 117 MG/DL (70-104); SODIUM 138 MMOL/L (135-145); TOTAL CARBON DIOXIDE 20.8 MMOL/L (24-32); eGFR 13 ML/MIN
--- NOTE | 2018-07-09 05:44 | NUR ---
MD came up at 5am, consent signed, 2 units PRBC ordered for today.
[2018-07-09] MEDS: normal saline 1000ml 1,000 ML IV SCH ×3 (05:46→21:19)
[2018-07-09] MEDS: HYDROcodone/acetaminophen 10/325mg tab PO PRN (05:53)
[2018-07-09 06:22] LABS: ANISOCYTOSIS 2+; MICROCYTOSIS 1+; PLATELET ESTIMATE NORMAL
[2018-07-09 06:23] LABS: ELLIPTOCYTES FEW; HYPOCHROMASIA 1+; POIKILOCYTOSIS FEW
--- NOTE | 2018-07-09 06:40 | NUR ---
Problems reprioritized. Patient report given, questions answered & plan of care reviewed with PATRIA Maldonado.
--- NOTE | 2018-07-09 06:44 | NUR ---
Patient in room [facility]. I have received report from Gary ESPAÑA and had the opportunity to ask questions and assume patient care.
[2018-07-09] MEDS ORDERED: albuterol 2.5 MG/3 ML nebule NEB SCH (07:00)
[2018-07-09] MEDS ORDERED: non-formulary drug (Fluticasone/Vilanterol (Breo Ellipta 200-25 Mcg INH) 1 PUFF) PO SCH (08:00)
[2018-07-09] MEDS ORDERED: non-formulary drug (Umeclidinium Bromide (Incruse Ellipta) 1 PUFF) PO SCH (08:00)
[2018-07-09] MEDS: budesonide 0.5mg/2ml UD nebule IH SCH ×2 (08:14→20:56)
[2018-07-09] MEDS: multivitamins, therapeutics tablet PO SCH (08:22)
[2018-07-09] MEDS: atorvastatin 20mg tablet PO SCH (08:23)
[2018-07-09] MEDS: docusate sod 100mg capsule PO SCH ×2 (08:23→19:54)
[2018-07-09] MEDS: carVEDilol 3.125mg tablet PO SCH ×2 (08:23→19:58)
[2018-07-09] MEDS: metoprolol succinate 25mg (24-HOUR) SR. Tablet PO SCH (08:23)
[2018-07-09] MEDS: isosorbide mononitrate 30mg tab.SR.24H PO SCH (08:24)
[2018-07-09] MEDS: LORazepam 0.5 MG tablet PO SCH ×2 (08:24→19:54)
[2018-07-09] MEDS: duloxetine 30mg CAPSULE.DR PO SCH (08:25)
[2018-07-09] MEDS: ipratropium/albuterol 3ml nebule NEB SCH ×3 (11:54→20:55)
[2018-07-09 14:07] LABS: HEMATOCRIT 23.4 % (35.0-45.0); HEMOGLOBIN 7.4 g/dl (12.0-16.0); MEAN CORPUSCULAR HGB CONC 31.6 g/dL (33.0-36.5); MEAN CORPUSCULAR VOLUME 79.2 FL (78-98); MEAN PLATELET VOLUME 7.9 FL (7.4-10.4); PLATELET COUNT 236 X10'3 (140-440); RED BLOOD COUNT 2.96 X10'6 (4.20-5.60); RED CELL DISTRIBUTION WIDTH 17.7 % (11.5-14.5)
--- NOTE | 2018-07-09 17:32 | NUR ---
Patient received a unit of blood hgb 7.4. dr Peters saw patient does not want second unit given. patient able to get up to BR but very weak unable to get orthostatic B/P. will try again later. Had BM appeared to be brown soft stool. will continue to monitor
--- NOTE | 2018-07-09 18:18 | NUR ---
Problems reprioritized. Patient report given, questions answered & plan of care reviewed with Jeancarlos ESPAÑA.
--- NOTE | 2018-07-09 18:30 | NUR ---
Patient in room [facility]. I have received report from Erica ESPAÑA and had the opportunity to ask questions and assume patient care.
[2018-07-09] MEDS: QUEtiapine 25mg tablet PO SCH (21:18)
[2018-07-10] VITALS: BP 96/56
[2018-07-10] MEDS: pantoprazole 40MG/NS 100ML BAG 100 ML IV SCH ×4 (01:00→16:28)
--- NOTE | 2018-07-10 06:34 | NUR ---
Problems reprioritized. Patient report given, questions answered & plan of care reviewed with wendy rn.
--- NOTE | 2018-07-10 06:38 | NUR ---
Patient in room [facility]. I have received report from PATRIA Arshad and had the opportunity to ask questions and assume patient care.
[2018-07-10 07:39] LABS: BASOPHILS % (AUTO) 0.6 % (0-1); EOSINOPHILS # (AUTO) 0.1 X10'3 (0-0.9); EOSINOPHILS % (AUTO) 1.9 % (0-6); HEMATOCRIT 25.5 % (35.0-45.0); LYMPHOCYTES # (AUTO) 0.4 X10'3 (1.1-4.8); LYMPHOCYTES % (AUTO) 7.5 % (21-51); MEAN CORPUSCULAR HEMOGLOBIN 25.1 PG (27.0-31.0); MEAN CORPUSCULAR HGB CONC 31.4 g/dL (33.0-36.5); MEAN PLATELET VOLUME 8.3 FL (7.4-10.4); MONOCYTES # (AUTO) 0.3 X10'3 (0-0.9); MONOCYTES % (AUTO) 5.1 % (2-12); NEUTROPHILS # (AUTO) 4.4 X10'3 (1.8-7.7); NEUTROPHILS % (AUTO) 84.9 % (42-75); PLATELET COUNT 218 X10'3 (140-440); RED BLOOD COUNT 3.19 X10'6 (4.20-5.60); RED CELL DISTRIBUTION WIDTH 18.2 % (11.5-14.5); WHITE BLOOD COUNT 5.2 X10'3 (4.5-11.0)
[2018-07-10] MEDS: isosorbide mononitrate 30mg tab.SR.24H PO SCH (07:46)
[2018-07-10] MEDS: atorvastatin 20mg tablet PO SCH (07:47)
[2018-07-10] MEDS: multivitamins, therapeutics tablet PO SCH (07:47)
[2018-07-10] MEDS: LORazepam 0.5 MG tablet PO SCH ×2 (07:47→20:34)
[2018-07-10] MEDS: metoprolol succinate 25mg (24-HOUR) SR. Tablet PO SCH (07:47)
[2018-07-10] MEDS: carVEDilol 3.125mg tablet PO SCH ×2 (07:47→20:34)
[2018-07-10] MEDS: duloxetine 30mg CAPSULE.DR PO SCH (07:47)
[2018-07-10] MEDS: docusate sod 100mg capsule PO SCH ×2 (07:48→20:00)
[2018-07-10 07:52] LABS: ALBUMIN 1.9 G/DL (3.4-5.0); ANION GAP 13 (8-16); BLOOD UREA NITROGEN 101 MG/DL (7-18); BUN/CREATININE RATIO 28.4 (6.6-38.0); CALCIUM 8.2 MG/DL (8.5-10.1); CHLORIDE 107 MMOL/L (99-107); CREATININE 3.56 MG/DL (0.40-0.90); GLUCOSE 94 MG/DL (70-104); POTASSIUM 4.1 MMOL/L (3.5-5.1); SODIUM 139 MMOL/L (135-145); TOTAL CARBON DIOXIDE 19.4 MMOL/L (24-32); eGFR 12 ML/MIN
[2018-07-10 08:00] VITALS: BP 109/52
[2018-07-10] MEDS: ipratropium/albuterol 3ml nebule NEB SCH ×4 (08:16→19:36)
[2018-07-10] MEDS: budesonide 0.5mg/2ml UD nebule IH SCH ×2 (08:16→19:36)
[2018-07-10 08:33] VITALS: BP_SYST 100; BP_SYST 109; BP_DIAS 49; BP_DIAS 52
[2018-07-10] MEDS: HYDROcodone/acetaminophen 10/325mg tab PO PRN (08:42)
[2018-07-10] MEDS: normal saline 1000ml 1,000 ML IV SCH (11:57)
[2018-07-10 12:00] VITALS: BP 95/51
[2018-07-10] MEDS ORDERED: nitroGLYCERIN 0.4mg SUBLingual tab SL PRN (16:30)
[2018-07-10 18:00] VITALS: BP 103/57
--- NOTE | 2018-07-10 18:35 | NUR ---
Problems reprioritized. Patient report given, questions answered & plan of care reviewed with PATRIA Arshad.
[2018-07-10 19:05] LABS: H PYLORI ANTIBODY NEGATIVE (Neg)
[2018-07-10 20:00] VITALS: BP_SYST 101; BP_SYST 103; BP_DIAS 57
[2018-07-10] MEDS ORDERED: pantoprazole 40 MG vial IV SCH (20:00)
[2018-07-10] MEDS: pantoprazole 40mg Tablet.DR PO SCH (20:34)
[2018-07-10] MEDS: QUEtiapine 25mg tablet PO SCH (20:34)
[2018-07-11] VITALS: BP 110/64
[2018-07-11] MEDS: normal saline 1000ml 1,000 ML IV SCH ×2 (02:01→14:54)
--- NOTE | 2018-07-11 06:23 | NUR ---
Problems reprioritized. Patient report given, questions answered & plan of care reviewed with Fidelina ESPAÑA.
[2018-07-11 07:17] VITALS: BP 117/65
[2018-07-11 07:22] LABS: BASOPHILS % (AUTO) 0.6 % (0-1); EOSINOPHILS # (AUTO) 0.2 X10'3 (0-0.9); EOSINOPHILS % (AUTO) 3.9 % (0-6); HEMATOCRIT 26.3 % (35.0-45.0); HEMOGLOBIN 8.1 g/dl (12.0-16.0); LYMPHOCYTES # (AUTO) 0.6 X10'3 (1.1-4.8); LYMPHOCYTES % (AUTO) 12.6 % (21-51); MEAN CORPUSCULAR HEMOGLOBIN 24.7 PG (27.0-31.0); MEAN CORPUSCULAR HGB CONC 30.9 g/dL (33.0-36.5); MEAN PLATELET VOLUME 8.4 FL (7.4-10.4); MONOCYTES # (AUTO) 0.4 X10'3 (0-0.9); MONOCYTES % (AUTO) 8.2 % (2-12); NEUTROPHILS # (AUTO) 3.4 X10'3 (1.8-7.7); NEUTROPHILS % (AUTO) 74.7 % (42-75); PLATELET COUNT 216 X10'3 (140-440); RED BLOOD COUNT 3.29 X10'6 (4.20-5.60); RED CELL DISTRIBUTION WIDTH 18.8 % (11.5-14.5); WHITE BLOOD COUNT 4.5 X10'3 (4.5-11.0)
[2018-07-11 07:52] LABS: ANION GAP 13 (8-16); BLOOD UREA NITROGEN 100 MG/DL (7-18); BUN/CREATININE RATIO 27.6 (6.6-38.0); CALCIUM 8.3 MG/DL (8.5-10.1); CHLORIDE 108 MMOL/L (99-107); CREATININE 3.62 MG/DL (0.40-0.90); GLUCOSE 108 MG/DL (70-104); POTASSIUM 4.2 MMOL/L (3.5-5.1); SODIUM 140 MMOL/L (135-145); TOTAL CARBON DIOXIDE 18.7 MMOL/L (24-32); eGFR 12 ML/MIN
[2018-07-11] MEDS: multivitamins, therapeutics tablet PO SCH (07:56)
[2018-07-11] MEDS: docusate sod 100mg capsule PO SCH ×2 (07:56→19:42)
[2018-07-11] MEDS: pantoprazole 40mg Tablet.DR PO SCH ×2 (07:56→19:42)
[2018-07-11] MEDS: atorvastatin 20mg tablet PO SCH (07:56)
[2018-07-11] MEDS: LORazepam 0.5 MG tablet PO SCH ×2 (07:56→19:42)
[2018-07-11] MEDS: duloxetine 30mg CAPSULE.DR PO SCH (07:56)
[2018-07-11] MEDS: carVEDilol 3.125mg tablet PO SCH ×2 (07:57→19:42)
[2018-07-11 08:00] VITALS: BP_SYST 114; BP_SYST 117; BP_SYST 122; BP_DIAS 60; BP_DIAS 65; BP_DIAS 72
[2018-07-11] MEDS: ipratropium/albuterol 3ml nebule NEB SCH ×4 (08:14→20:35)
[2018-07-11] MEDS: budesonide 0.5mg/2ml UD nebule IH SCH ×2 (08:14→20:35)
[2018-07-11 09:13] LABS: PLATELET ESTIMATE NORMAL
[2018-07-11 09:14] LABS: ANISOCYTOSIS 2+; MICROCYTOSIS 1+; POLYCHROMASIA FEW
[2018-07-11 09:15] LABS: POIKILOCYTOSIS 1+
[2018-07-11 11:23] VITALS: BP 120/73
--- NOTE | 2018-07-11 18:38 | NUR ---
Problems reprioritized. Patient report given, questions answered & plan of care reviewed with Rosalia ESPAÑA.
[2018-07-11] MEDS: QUEtiapine 25mg tablet PO SCH (19:42)
[2018-07-11 20:00] VITALS: BP_SYST 130; BP_SYST 136; BP_DIAS 68; BP_DIAS 72; BP_DIAS 75
--- NOTE | 2018-07-11 21:46 | NUR ---
Patient in room [facility]. I have received report from PATRIA Kitchen and had the opportunity to ask questions and assume patient care. Addendum: 07/11/18 at 2146 by Rosalia Lan RN Amended: Links added.
[2018-07-11] MEDS: HYDROcodone/acetaminophen 10/325mg tab PO PRN (23:14)
[2018-07-12 00:14] VITALS: BP 139/64
--- NOTE | 2018-07-12 06:09 | NUR ---
Problems reprioritized. Patient report given, questions answered & plan of care reviewed with PATRIA Francois. Addendum: 07/12/18 at 0609 by Rosalia Lan RN Amended: Links added.
[2018-07-12 06:58] LABS: BASOPHILS % (AUTO) 0.9 % (0-1); EOSINOPHILS % (AUTO) 0.8 % (0-6); HEMATOCRIT 26.4 % (35.0-45.0); HEMOGLOBIN 8.2 g/dl (12.0-16.0); LYMPHOCYTES # (AUTO) 0.6 X10'3 (1.1-4.8); LYMPHOCYTES % (AUTO) 13.7 % (21-51); MEAN CORPUSCULAR HEMOGLOBIN 25.1 PG (27.0-31.0); MEAN CORPUSCULAR HGB CONC 31.2 g/dL (33.0-36.5); MEAN CORPUSCULAR VOLUME 80.3 FL (78-98); MEAN PLATELET VOLUME 8.7 FL (7.4-10.4); MONOCYTES # (AUTO) 0.4 X10'3 (0-0.9); MONOCYTES % (AUTO) 7.9 % (2-12); NEUTROPHILS # (AUTO) 3.5 X10'3 (1.8-7.7); NEUTROPHILS % (AUTO) 76.7 % (42-75); PLATELET COUNT 205 X10'3 (140-440); RED BLOOD COUNT 3.29 X10'6 (4.20-5.60); RED CELL DISTRIBUTION WIDTH 19.1 % (11.5-14.5); WHITE BLOOD COUNT 4.5 X10'3 (4.5-11.0)
[2018-07-12 07:00] VITALS: BP 146/75
[2018-07-12 07:07] LABS: ALBUMIN 2.1 G/DL (3.4-5.0); ANION GAP 15 (8-16); BLOOD UREA NITROGEN 92 MG/DL (7-18); BUN/CREATININE RATIO 25.1 (6.6-38.0); CALCIUM 8.5 MG/DL (8.5-10.1); CHLORIDE 108 MMOL/L (99-107); CREATININE 3.66 MG/DL (0.40-0.90); GLUCOSE 105 MG/DL (70-104); POTASSIUM 4.7 MMOL/L (3.5-5.1); SODIUM 139 MMOL/L (135-145); eGFR 12 ML/MIN
[2018-07-12] MEDS: ipratropium/albuterol 3ml nebule NEB SCH ×4 (07:19→18:59)
[2018-07-12] MEDS: budesonide 0.5mg/2ml UD nebule IH SCH ×2 (07:19→18:59)
[2018-07-12 07:28] LABS: ANISOCYTOSIS 2+; PLATELET ESTIMATE NORMAL
[2018-07-12 07:29] LABS: POIKILOCYTOSIS 1+; POLYCHROMASIA FEW
[2018-07-12 07:30] LABS: MICROCYTOSIS 1+
[2018-07-12] MEDS: carVEDilol 3.125mg tablet PO SCH ×2 (07:32→20:03)
[2018-07-12] MEDS: docusate sod 100mg capsule PO SCH ×2 (07:32→18:15)
[2018-07-12] MEDS: LORazepam 0.5 MG tablet PO SCH ×2 (07:32→20:03)
[2018-07-12] MEDS: pantoprazole 40mg Tablet.DR PO SCH ×2 (07:32→20:03)
[2018-07-12] MEDS: duloxetine 30mg CAPSULE.DR PO SCH (07:32)
[2018-07-12] MEDS: multivitamins, therapeutics tablet PO SCH (07:32)
[2018-07-12] MEDS: atorvastatin 20mg tablet PO SCH (07:32)
[2018-07-12 08:00] VITALS: BP_SYST 129; BP_SYST 134; BP_SYST 138; BP_DIAS 67; BP_DIAS 71; BP_DIAS 76
[2018-07-12 11:00] VITALS: BP 118/76
--- NOTE | 2018-07-12 18:19 | NUR ---
Problems reprioritized. Patient report given, questions answered & plan of care reviewed with BERT ESPAÑA.
[2018-07-12] MEDS: HYDROcodone/acetaminophen 10/325mg tab PO PRN (18:26)
[2018-07-12 20:00] VITALS: BP 144/82
[2018-07-12] MEDS: QUEtiapine 25mg tablet PO SCH (20:03)
[2018-07-12] MEDS: normal saline 1000ml 1,000 ML IV SCH ×2 (20:04→20:37)
[2018-07-12 20:37] LABS: CLARITY,URINE SLIGHTLY CLOUDY (Clear); COLOR,URINE YELLOW (Yellow); GLUCOSE, URINE NEGATIVE (Neg); KETONES,URINE TRACE mg/dl (Neg); LEUKOCYTE ESTERASE ,URINE NEGATIVE (Neg); NITRITES, URINE NEGATIVE (Neg); OCCULT BLOOD,URINE LARGE (Neg); PROTEIN,URINE >=300 mg/dl (Neg); UROBILINOGEN,URINE 0.2 E.U/dL (0.2-1.0)
[2018-07-12 20:50] LABS: UA COLLECTION TYPE FOLEY CATH
[2018-07-12 20:51] LABS: MUCUS STRANDS MODERATE /LPF (Neg); RBC,URINE TNTC /HPF (0-2)
[2018-07-12 20:57] LABS: SQUAMOUS EPITHELIAL CELL,UR MANY /LPF (FEW)
[2018-07-12 20:58] LABS: BACTERIA,URINE FEW /HPF (Neg); WBC,URINE 20-30 /HPF (0-4)
[2018-07-12 20:59] LABS: YEAST FEW /HPF (NEGATIVE)
--- NOTE | 2018-07-12 21:02 | NUR ---
Patient in room [facility]. I have received report from PATRIA Francois and had the opportunity to ask questions and assume patient care. Addendum: 07/12/18 at 2103 by Rosalia Lan RN Amended: Links added.
[2018-07-13] MEDS: docusate sod 100mg capsule PO SCH ×2 (06:36→10:17)
--- NOTE | 2018-07-13 06:38 | NUR ---
Problems reprioritized. Patient report given, questions answered & plan of care reviewed with PATRIA Amaro. Addendum: 07/13/18 at 0639 by Rosalia Lan RN Amended: Links added.
[2018-07-13 07:00] VITALS: BP 134/79
[2018-07-13 07:11] LABS: BASOPHILS # (AUTO) 0.1 X10'3 (0-0.2); BASOPHILS % (AUTO) 1.1 % (0-1); EOSINOPHILS % (AUTO) 0.4 % (0-6); HEMATOCRIT 25.1 % (35.0-45.0); HEMOGLOBIN 7.8 g/dl (12.0-16.0); LYMPHOCYTES # (AUTO) 0.6 X10'3 (1.1-4.8); LYMPHOCYTES % (AUTO) 12.3 % (21-51); MEAN CORPUSCULAR HEMOGLOBIN 24.9 PG (27.0-31.0); MEAN CORPUSCULAR HGB CONC 31.1 g/dL (33.0-36.5); MEAN CORPUSCULAR VOLUME 79.9 FL (78-98); MEAN PLATELET VOLUME 8.7 FL (7.4-10.4); MONOCYTES # (AUTO) 0.4 X10'3 (0-0.9); MONOCYTES % (AUTO) 8.9 % (2-12); NEUTROPHILS # (AUTO) 3.9 X10'3 (1.8-7.7); NEUTROPHILS % (AUTO) 77.3 % (42-75); PLATELET COUNT 198 X10'3 (140-440); RED BLOOD COUNT 3.14 X10'6 (4.20-5.60); RED CELL DISTRIBUTION WIDTH 19.1 % (11.5-14.5)
[2018-07-13 07:28] LABS: ALBUMIN 1.9 G/DL (3.4-5.0); ANION GAP 16 (8-16); BLOOD UREA NITROGEN 95 MG/DL (7-18); BUN/CREATININE RATIO 25.5 (6.6-38.0); CALCIUM 8.3 MG/DL (8.5-10.1); CHLORIDE 110 MMOL/L (99-107); CREATININE 3.72 MG/DL (0.40-0.90); GLUCOSE 95 MG/DL (70-104); POTASSIUM 4.8 MMOL/L (3.5-5.1); SODIUM 141 MMOL/L (135-145); TOTAL CARBON DIOXIDE 15.3 MMOL/L (24-32); eGFR 12 ML/MIN
[2018-07-13] MEDS: ipratropium/albuterol 3ml nebule NEB SCH ×5 (07:48→21:13)
[2018-07-13] MEDS: budesonide 0.5mg/2ml UD nebule IH SCH ×2 (07:48→21:14)
[2018-07-13 07:59] LABS: ANISOCYTOSIS 2+; MICROCYTOSIS 1+; PLATELET ESTIMATE NORMAL
[2018-07-13 08:00] LABS: BURR CELLS 1+; ELLIPTOCYTES FEW; POLYCHROMASIA FEW; SCHISTOCYTES FEW
[2018-07-13] MEDS: LORazepam 0.5 MG tablet PO SCH ×2 (10:17→20:24)
[2018-07-13] MEDS: multivitamins, therapeutics tablet PO SCH (10:17)
[2018-07-13] MEDS: carVEDilol 3.125mg tablet PO SCH ×2 (10:18→20:24)
[2018-07-13] MEDS: atorvastatin 20mg tablet PO SCH (10:18)
[2018-07-13] MEDS: duloxetine 30mg CAPSULE.DR PO SCH (10:18)
[2018-07-13] MEDS: normal saline 1000ml 1,000 ML IV SCH (10:19)
[2018-07-13] MEDS: pantoprazole 40mg Tablet.DR PO SCH ×2 (10:19→20:24)
[2018-07-13 11:00] VITALS: BP 146/76
[2018-07-13] MEDS: SODIUM CHLORIDE 0.45% IV SCH (14:09)
[2018-07-13] MEDS: SODIUM BICARBONATE IV SCH (14:09)
--- NOTE | 2018-07-13 15:22 | NUR ---
Initial: Pt AOx1 admit w/ abdominal pain and GIB hx EGD 2 months ago revealing erosive gastritis and esophagitis. Pt also hx HTN, COPD former smoker. Large BM 07/12 on colace and MoM w/ no signs of bleeding at this time per MD note. Pt PO 25% avg full liquid diet; on full liquids since admit day 5. Pt initially having emesis on admit but none today per RN. RD d/w RN regarding diet advancement per MD approval given not meeting needs on full liquids and urine even positive for ketones last night. Pt currently has no IV access which RN reports is in progress today. Pt has reglan ordered PRN but IV. Ensure Enlive TIDWM added for additional protein/energy needs; MD and dietary notified. Will continue to monitor for PO hx and ONS acceptance. Rec: 1. advance diet per MD to heart healthy 2. ensure enlive TIDWM 3. monitor for PO promotility needs per MD 4. wt per rx Addendum: 07/13/18 at [address] Amended: Links added.
[2018-07-13] MEDS ORDERED: metoclopramide 10mg tablet PO PRN (15:30)
[2018-07-13] MEDS: HYDROcodone/acetaminophen 10/325mg tab PO PRN (15:43)
[2018-07-13] MEDS: lactose-reduced food (Ensure Enlive) - 237ml bottle PO SCH (18:00)
--- NOTE | 2018-07-13 18:38 | NUR ---
Gave report to Rosalia ESPAÑA. Pt. resting in bed with rise and fall of chest, comfortable with fall precautions in place, IV running fluids per order, IV secured.
[2018-07-13 19:00] VITALS: BP 125/78
[2018-07-13 20:00] VITALS: BP_SYST 125; BP_SYST 134; BP_DIAS 73; BP_DIAS 78
[2018-07-13] MEDS: QUEtiapine 25mg tablet PO SCH (20:24)
[2018-07-14] VITALS: BP 138/76
[2018-07-14] MEDS: SODIUM CHLORIDE 0.45% IV SCH ×3 (01:01→23:11)
[2018-07-14] MEDS: SODIUM BICARBONATE IV SCH ×3 (01:01→23:11)
[2018-07-14] MEDS: HYDROcodone/acetaminophen 10/325mg tab PO PRN ×2 (05:24→14:01)
--- NOTE | 2018-07-14 06:23 | NUR ---
Problems reprioritized. Patient report given, questions answered & plan of care reviewed with PATRIA Starr. Addendum: 07/14/18 at 0623 by Rosalia Lan RN Amended: Links added.
--- NOTE | 2018-07-14 06:58 | NUR ---
Patient in room [facility]. I have received report from PATRIA NOEL and had the opportunity to ask questions and assume patient care.
[2018-07-14 07:00] VITALS: BP 139/55
[2018-07-14] MEDS: ipratropium/albuterol 3ml nebule NEB SCH ×4 (07:00→19:31)
[2018-07-14] MEDS: budesonide 0.5mg/2ml UD nebule IH SCH ×2 (07:54→19:31)
[2018-07-14] MEDS: lactose-reduced food (Ensure Enlive) - 237ml bottle PO SCH (08:00)
[2018-07-14] MEDS: multivitamins, therapeutics tablet PO SCH (08:13)
[2018-07-14] MEDS: carVEDilol 3.125mg tablet PO SCH ×2 (08:13→21:16)
[2018-07-14] MEDS: atorvastatin 20mg tablet PO SCH (08:13)
[2018-07-14] MEDS: LORazepam 0.5 MG tablet PO SCH ×2 (08:13→21:16)
[2018-07-14] MEDS: pantoprazole 40mg Tablet.DR PO SCH ×2 (08:13→21:16)
[2018-07-14] MEDS: duloxetine 30mg CAPSULE.DR PO SCH (08:13)
[2018-07-14] MEDS: docusate sod 100mg capsule PO SCH ×2 (08:13→21:17)
[2018-07-14 08:45] LABS: BASOPHILS % (AUTO) 0.7 % (0-1); EOSINOPHILS # (AUTO) 0.1 X10'3 (0-0.9); EOSINOPHILS % (AUTO) 1.2 % (0-6); HEMATOCRIT 25.9 % (35.0-45.0); HEMOGLOBIN 7.9 g/dl (12.0-16.0); LYMPHOCYTES # (AUTO) 0.5 X10'3 (1.1-4.8); LYMPHOCYTES % (AUTO) 9.2 % (21-51); MEAN CORPUSCULAR HEMOGLOBIN 24.4 PG (27.0-31.0); MEAN CORPUSCULAR HGB CONC 30.4 g/dL (33.0-36.5); MEAN CORPUSCULAR VOLUME 80.4 FL (78-98); MEAN PLATELET VOLUME 8.3 FL (7.4-10.4); MONOCYTES # (AUTO) 0.5 X10'3 (0-0.9); NEUTROPHILS # (AUTO) 4.8 X10'3 (1.8-7.7); NEUTROPHILS % (AUTO) 80.9 % (42-75); PLATELET COUNT 209 X10'3 (140-440); RED BLOOD COUNT 3.22 X10'6 (4.20-5.60); RED CELL DISTRIBUTION WIDTH 19.1 % (11.5-14.5)
[2018-07-14 08:49] LABS: ANION GAP 13 (8-16); BLOOD UREA NITROGEN 96 MG/DL (7-18); BUN/CREATININE RATIO 24.8 (6.6-38.0); CALCIUM 8.6 MG/DL (8.5-10.1); CHLORIDE 109 MMOL/L (99-107); CREATININE 3.87 MG/DL (0.40-0.90); GLUCOSE 91 MG/DL (70-104); POTASSIUM 5.1 MMOL/L (3.5-5.1); SODIUM 141 MMOL/L (135-145); TOTAL CARBON DIOXIDE 18.9 MMOL/L (24-32); eGFR 11 ML/MIN
[2018-07-14 09:29] LABS: ANISOCYTOSIS 2+; BURR CELLS FEW; ELLIPTOCYTES FEW; HYPOCHROMASIA 1+; PLATELET ESTIMATE NORMAL; POLYCHROMASIA FEW; SCHISTOCYTES FEW
[2018-07-14 12:00] VITALS: BP_SYST 134; BP_SYST 140; BP_DIAS 75; BP_DIAS 78
--- NOTE | 2018-07-14 12:00 | NUR ---
Patient unable to stand for orthostatic vitals. Addendum: 07/14/18 at 1410 by Ro Wilde RN Amended: Links added.
--- NOTE | 2018-07-14 18:34 | NUR ---
Problems reprioritized. Patient report given, questions answered & plan of care reviewed with PATRIA Cochran.
[2018-07-14 20:00] VITALS: BP 140/81
[2018-07-14] MEDS: QUEtiapine 25mg tablet PO SCH (21:17)
[2018-07-15] VITALS: BP 132/60
[2018-07-15 05:45] LABS: BASOPHILS % (AUTO) 0.5 % (0-1); EOSINOPHILS # (AUTO) 0.1 X10'3 (0-0.9); EOSINOPHILS % (AUTO) 0.9 % (0-6); LYMPHOCYTES # (AUTO) 0.6 X10'3 (1.1-4.8); LYMPHOCYTES % (AUTO) 9.9 % (21-51); MEAN CORPUSCULAR HEMOGLOBIN 24.4 PG (27.0-31.0); MEAN CORPUSCULAR HGB CONC 29.7 g/dL (33.0-36.5); MEAN CORPUSCULAR VOLUME 82.3 FL (78-98); MEAN PLATELET VOLUME 8.6 FL (7.4-10.4); MONOCYTES # (AUTO) 0.4 X10'3 (0-0.9); MONOCYTES % (AUTO) 6.5 % (2-12); NEUTROPHILS # (AUTO) 4.7 X10'3 (1.8-7.7); NEUTROPHILS % (AUTO) 82.2 % (42-75); PLATELET COUNT 207 X10'3 (140-440); RED BLOOD COUNT 3.27 X10'6 (4.20-5.60); WHITE BLOOD COUNT 5.8 X10'3 (4.5-11.0)
[2018-07-15 05:53] LABS: ANION GAP 14 (8-16); BLOOD UREA NITROGEN 94 MG/DL (7-18); BUN/CREATININE RATIO 24.6 (6.6-38.0); CALCIUM 8.4 MG/DL (8.5-10.1); CHLORIDE 108 MMOL/L (99-107); CREATININE 3.82 MG/DL (0.40-0.90); GLUCOSE 92 MG/DL (70-104); POTASSIUM 4.5 MMOL/L (3.5-5.1); SODIUM 139 MMOL/L (135-145); TOTAL CARBON DIOXIDE 17.3 MMOL/L (24-32); eGFR 11 ML/MIN
--- NOTE | 2018-07-15 06:48 | NUR ---
Patient in room [facility]. I have received report from PATRIA RAWLS and had the opportunity to ask questions and assume patient care.
[2018-07-15 07:15] LABS: ANISOCYTOSIS 2+; HYPOCHROMASIA 1+; PLATELET ESTIMATE NORMAL
[2018-07-15 07:16] LABS: ELLIPTOCYTES FEW
[2018-07-15 07:25] VITALS: BP 107/74
[2018-07-15] MEDS: pantoprazole 40mg Tablet.DR PO SCH ×2 (07:34→20:36)
[2018-07-15] MEDS: multivitamins, therapeutics tablet PO SCH (07:34)
[2018-07-15] MEDS: docusate sod 100mg capsule PO SCH ×2 (07:34→20:36)
[2018-07-15] MEDS: carVEDilol 3.125mg tablet PO SCH ×2 (07:34→20:36)
[2018-07-15] MEDS: duloxetine 30mg CAPSULE.DR PO SCH (07:34)
[2018-07-15] MEDS: LORazepam 0.5 MG tablet PO SCH ×2 (07:34→20:36)
[2018-07-15] MEDS: atorvastatin 20mg tablet PO SCH (07:34)
[2018-07-15] MEDS: HYDROcodone/acetaminophen 10/325mg tab PO PRN ×2 (07:41→13:37)
[2018-07-15] MEDS: budesonide 0.5mg/2ml UD nebule IH SCH ×2 (07:48→19:47)
[2018-07-15] MEDS: ipratropium/albuterol 3ml nebule NEB SCH ×4 (07:48→19:47)
[2018-07-15 11:00] VITALS: BP 153/74
[2018-07-15 12:10] VITALS: BP_SYST 153; BP_SYST 159; BP_DIAS 74; BP_DIAS 75
[2018-07-15] MEDS: SODIUM BICARBONATE IV SCH (15:55)
[2018-07-15] MEDS: SODIUM CHLORIDE 0.45% IV SCH (15:55)
[2018-07-15] MEDS: lactose-reduced food (Ensure Enlive) - 237ml bottle PO SCH (18:00)
--- NOTE | 2018-07-15 18:21 | NUR ---
Problems reprioritized. Patient report given, questions answered & plan of care reviewed with PATRIA RAWLS.
[2018-07-15 20:00] VITALS: BP 147/70
[2018-07-15] MEDS: QUEtiapine 25mg tablet PO SCH (20:36)
[2018-07-16] VITALS: BP 140/79
[2018-07-16 05:20] VITALS: BP 140/79
[2018-07-16 06:06] LABS: ALBUMIN 1.9 G/DL (3.4-5.0); ANION GAP 14 (8-16); BLOOD UREA NITROGEN 96 MG/DL (7-18); BUN/CREATININE RATIO 25.1 (6.6-38.0); CALCIUM 8.2 MG/DL (8.5-10.1); CHLORIDE 108 MMOL/L (99-107); CREATININE 3.83 MG/DL (0.40-0.90); GLUCOSE 97 MG/DL (70-104); POTASSIUM 4.4 MMOL/L (3.5-5.1); SODIUM 139 MMOL/L (135-145); TOTAL CARBON DIOXIDE 17.4 MMOL/L (24-32); eGFR 11 ML/MIN
[2018-07-16 06:10] LABS: INR 1.2 INR; PROTHROMBIN TIME 12.2 SECONDS (9.0-12.0)
[2018-07-16 06:50] LABS: BASOPHILS # (AUTO) 0.1 X10'3 (0-0.2); BASOPHILS % (AUTO) 0.9 % (0-1); EOSINOPHILS # (AUTO) 0.1 X10'3 (0-0.9); EOSINOPHILS % (AUTO) 1.7 % (0-6); HEMATOCRIT 26.9 % (35.0-45.0); HEMOGLOBIN 8.5 g/dl (12.0-16.0); LYMPHOCYTES # (AUTO) 0.5 X10'3 (1.1-4.8); LYMPHOCYTES % (AUTO) 9.3 % (21-51); MEAN CORPUSCULAR HEMOGLOBIN 24.8 PG (27.0-31.0); MEAN CORPUSCULAR HGB CONC 31.4 g/dL (33.0-36.5); MEAN CORPUSCULAR VOLUME 78.8 FL (78-98); MEAN PLATELET VOLUME 8.4 FL (7.4-10.4); MONOCYTES # (AUTO) 0.6 X10'3 (0-0.9); MONOCYTES % (AUTO) 9.6 % (2-12); NEUTROPHILS # (AUTO) 4.6 X10'3 (1.8-7.7); NEUTROPHILS % (AUTO) 78.5 % (42-75); PLATELET COUNT 195 X10'3 (140-440); RED BLOOD COUNT 3.42 X10'6 (4.20-5.60); RED CELL DISTRIBUTION WIDTH 19.7 % (11.5-14.5); WHITE BLOOD COUNT 5.9 X10'3 (4.5-11.0)
[2018-07-16 07:00] VITALS: BP 151/79
[2018-07-16 07:30] LABS: ANISOCYTOSIS 2+; ELLIPTOCYTES FEW; MICROCYTOSIS 1+; PLATELET ESTIMATE NORMAL; POIKILOCYTOSIS FEW; POLYCHROMASIA FEW; SCHISTOCYTES FEW
[2018-07-16] MEDS ORDERED: midazolam 2 mg/2 ml injection IV PRN (07:40)
[2018-07-16] MEDS ORDERED: heparin 1,000 units/ml 10ml inj ICATH ONE (07:40)
[2018-07-16] MEDS ORDERED: fentaNYL/PF 50MCG/1 ML 2ML syringe IV PRN (07:40)
[2018-07-16] MEDS ORDERED: LIDOcaine 1%/PF 5ML 10 MG/ML VIAL SQ ONE (07:40)
[2018-07-16] MEDS ORDERED: LIDOcaine 1%/PF 5ML 10 MG/ML VIAL ONE (07:43)
[2018-07-16] MEDS ORDERED: heparin 1,000unit/ml 10ml vial 10 ML ONE (07:43)
[2018-07-16] MEDS ORDERED: midazolam 2 mg/2 ml injection ONE (07:44)
[2018-07-16] MEDS ORDERED: fentaNYL/PF 50MCG/1 ML 2ML syringe ONE (07:44)
[2018-07-16] MEDS: budesonide 0.5mg/2ml UD nebule IH SCH ×2 (08:00→21:00)
[2018-07-16] MEDS: lactose-reduced food (Ensure Enlive) - 237ml bottle PO SCH ×2 (08:00→13:00)
[2018-07-16] MEDS: ipratropium/albuterol 3ml nebule NEB SCH ×4 (08:04→21:00)
[2018-07-16] MEDS: LORazepam 0.5 MG tablet PO SCH ×2 (09:28→20:00)
[2018-07-16] MEDS: atorvastatin 20mg tablet PO SCH (09:28)
[2018-07-16] MEDS: carVEDilol 3.125mg tablet PO SCH ×2 (09:28→20:00)
[2018-07-16] MEDS: docusate sod 100mg capsule PO SCH ×2 (09:28→21:08)
[2018-07-16] MEDS: multivitamins, therapeutics tablet PO SCH (09:28)
[2018-07-16] MEDS: pantoprazole 40mg Tablet.DR PO SCH ×2 (09:28→21:08)
[2018-07-16] MEDS: duloxetine 30mg CAPSULE.DR PO SCH (09:28)
--- NOTE | 2018-07-16 10:45 | NUR ---
DC FC, PT TOLERATED WELL
[2018-07-16] MEDS: SODIUM CHLORIDE 0.45% IV SCH (13:39)
[2018-07-16] MEDS: SODIUM BICARBONATE IV SCH (13:39)
[2018-07-16] MEDS ORDERED: normal saline 1000ml 250 ML IV PRN (13:54)
[2018-07-16] MEDS ORDERED: heparin 1,000unit/ml 10ml vial 10 ML IV ONE (13:54)
[2018-07-16 13:57] VITALS: BP 152/80
[2018-07-16] MEDS ORDERED: heparin 1,000 units/ml 10ml inj HE ONE ×2 (14:00)
--- NOTE | 2018-07-16 14:28 | NUR ---
Follow up: patient has been on full liquid diet for 9 days, no active GI bleed per MD note. Recommend to advance to renal HD to improve PO intake and meet nutrition needs. Pt not receiving HD s/p TDC placement. Pt not drinking Ensure, recommend to d/c and try stefania Burch RN. Pt still confused and possibly r/t poor intake. Will continue to follow. Rec: 1. Continue renal HD diet 2. send Marcin TIDWM 3. wt per rx Addendum: 07/16/18 at [address] Amended: Links added.
--- NOTE | 2018-07-16 18:46 | NUR ---
Problems reprioritized. Patient report given, questions answered & plan of care reviewed with gertrudis alfred.
[2018-07-16 19:00] VITALS: BP 161/80
[2018-07-16] MEDS: QUEtiapine 25mg tablet PO SCH (21:00)
[2018-07-17] VITALS: BP 161/80
[2018-07-17] MEDS: HYDROcodone/acetaminophen 10/325mg tab PO PRN (03:09)
[2018-07-17] MEDS: SODIUM CHLORIDE 0.45% IV SCH ×2 (04:55→19:55)
[2018-07-17] MEDS: SODIUM BICARBONATE IV SCH ×2 (04:55→19:55)
--- NOTE | 2018-07-17 06:38 | NUR ---
Problems reprioritized. Patient report given, questions answered & plan of care reviewed with Bertha ESPAÑA. Addendum: 07/17/18 at 0638 by Merced Wyatt RN Amended: Links added.
[2018-07-17 06:53] LABS: BASOPHILS % (AUTO) 0.1 % (0-1); EOSINOPHILS % (AUTO) 0 % (0-6); HEMATOCRIT 30.1 % (35.0-45.0); HEMOGLOBIN 9.3 g/dl (12.0-16.0); LYMPHOCYTES # (AUTO) 0.4 X10'3 (1.1-4.8); LYMPHOCYTES % (AUTO) 5.5 % (21-51); MEAN CORPUSCULAR HEMOGLOBIN 24.4 PG (27.0-31.0); MEAN CORPUSCULAR HGB CONC 30.9 g/dL (33.0-36.5); MEAN PLATELET VOLUME 8.5 FL (7.4-10.4); MONOCYTES # (AUTO) 0.6 X10'3 (0-0.9); MONOCYTES % (AUTO) 7.5 % (2-12); NEUTROPHILS # (AUTO) 6.8 X10'3 (1.8-7.7); NEUTROPHILS % (AUTO) 86.9 % (42-75); PLATELET COUNT 257 X10'3 (140-440); RED BLOOD COUNT 3.82 X10'6 (4.20-5.60); RED CELL DISTRIBUTION WIDTH 20.1 % (11.5-14.5); WHITE BLOOD COUNT 7.9 X10'3 (4.5-11.0)
[2018-07-17 07:00] VITALS: BP 144/85
[2018-07-17 07:10] LABS: ALBUMIN 2.2 G/DL (3.4-5.0); ANION GAP 16 (8-16); BLOOD UREA NITROGEN 40 MG/DL (7-18); BUN/CREATININE RATIO 18.3 (6.6-38.0); CALCIUM 8.6 MG/DL (8.5-10.1); CHLORIDE 102 MMOL/L (99-107); CREATININE 2.18 MG/DL (0.40-0.90); GLUCOSE 92 MG/DL (70-104); POTASSIUM 3.9 MMOL/L (3.5-5.1); SODIUM 140 MMOL/L (135-145); eGFR 22 ML/MIN
[2018-07-17] MEDS: budesonide 0.5mg/2ml UD nebule IH SCH ×2 (07:44→20:21)
[2018-07-17] MEDS: ipratropium/albuterol 3ml nebule NEB SCH ×4 (07:44→20:21)
[2018-07-17] MEDS: docusate sod 100mg capsule PO SCH ×2 (08:00→21:06)
[2018-07-17] MEDS: atorvastatin 20mg tablet PO SCH (08:00)
[2018-07-17] MEDS: multivitamins, therapeutics tablet PO SCH (08:00)
[2018-07-17] MEDS: pantoprazole 40mg Tablet.DR PO SCH ×2 (08:00→21:06)
[2018-07-17] MEDS: LORazepam 0.5 MG tablet PO SCH ×2 (08:32→21:06)
[2018-07-17] MEDS: carVEDilol 3.125mg tablet PO SCH ×2 (08:33→21:07)
[2018-07-17] MEDS: duloxetine 30mg CAPSULE.DR PO SCH (08:34)
[2018-07-17 10:06] LABS: ANISOCYTOSIS 3+; HYPOCHROMASIA 1+; PLATELET ESTIMATE NORMAL; POLYCHROMASIA 1+
[2018-07-17 10:07] LABS: ELLIPTOCYTES 1+; MICROCYTOSIS 1+; SCHISTOCYTES FEW
[2018-07-17 12:00] VITALS: BP 112/56
--- NOTE | 2018-07-17 18:11 | NUR ---
Problems reprioritized. Patient report given, questions answered & plan of care reviewed with LUIS SMITH RN.
--- NOTE | 2018-07-17 18:30 | NUR ---
Patient in room [facility]. I have received report from CECY ESPAÑA and had the opportunity to ask questions and assume patient care.
[2018-07-17 20:00] VITALS: BP_SYST 123; BP_SYST 136; BP_DIAS 74; BP_DIAS 75
[2018-07-17] MEDS: QUEtiapine 25mg tablet PO SCH (21:06)
[2018-07-18] VITALS: BP 140/78
--- NOTE | 2018-07-18 06:30 | NUR ---
Patient in room [facility]. I have received report from Cole ESPAÑA and had the opportunity to ask questions and assume patient care.
--- NOTE | 2018-07-18 06:30 | NUR ---
Problems reprioritized. Patient report given, questions answered & plan of care reviewed with GEETHA RN.
[2018-07-18] MEDS: ipratropium/albuterol 3ml nebule NEB SCH ×4 (07:00→19:49)
[2018-07-18 07:02] LABS: ANION GAP 12 (8-16); BLOOD UREA NITROGEN 54 MG/DL (7-18); BUN/CREATININE RATIO 17.8 (6.6-38.0); CALCIUM 8.4 MG/DL (8.5-10.1); CHLORIDE 104 MMOL/L (99-107); CREATININE 3.03 MG/DL (0.40-0.90); GLUCOSE 110 MG/DL (70-104); POTASSIUM 4.3 MMOL/L (3.5-5.1); SODIUM 139 MMOL/L (135-145); TOTAL CARBON DIOXIDE 22.7 MMOL/L (24-32); eGFR 15 ML/MIN
[2018-07-18 07:54] VITALS: BP 134/75
[2018-07-18] MEDS: budesonide 0.5mg/2ml UD nebule IH SCH ×2 (07:56→19:50)
[2018-07-18] MEDS: pantoprazole 40mg Tablet.DR PO SCH ×2 (08:00→19:54)
[2018-07-18] MEDS ORDERED: heparin 1,000 units/ml 10ml inj HE ONE ×2 (08:00)
[2018-07-18] MEDS: docusate sod 100mg capsule PO SCH ×2 (08:00→19:54)
[2018-07-18] MEDS: atorvastatin 20mg tablet PO SCH (08:00)
[2018-07-18] MEDS ORDERED: epoetin 20,000 units/ml inj IV ONE (08:00)
[2018-07-18] MEDS ORDERED: normal saline 1000ml 250 ML IV PRN (08:00)
[2018-07-18] MEDS ORDERED: heparin 1,000unit/ml 10ml vial 10 ML IV ONE (08:00)
[2018-07-18] MEDS: duloxetine 30mg CAPSULE.DR PO SCH (08:00)
[2018-07-18] MEDS: LORazepam 0.5 MG tablet PO SCH ×2 (08:00→19:54)
[2018-07-18] MEDS: multivitamins, therapeutics tablet PO SCH (08:00)
[2018-07-18] MEDS ORDERED: albumin (Human) 5% 250ml 250 ML IV PRN (08:00)
[2018-07-18] MEDS: carVEDilol 3.125mg tablet PO SCH ×2 (08:46→19:55)
--- NOTE | 2018-07-18 09:09 | NUR ---
PHYSICIAN NOTIFIED THAT PATIENT REFUSED MEDICATIONS TODAY
[2018-07-18] MEDS: HYDROcodone/acetaminophen 10/325mg tab PO PRN (09:43)
[2018-07-18 12:00] VITALS: BP 128/66
--- NOTE | 2018-07-18 15:07 | NUR ---
reassessment: Pt fluctuates in and out of alertness AOx1 today per RN refusing meals/0% PO day 4 now including ONS and meds today. RD d/w RN for scaled wt is possible via PT given current is pt stated. Pt remains on routine HD for CKD not meeting protein/energy needs. Will monitor for appetite stimulant needs if PO continues to decline though pt is routinely taking seroquel. Rec: 1. Continue renal HD diet 2. send Nepro TIDWM 3. encourage PO 4. wt per rx Addendum: 07/18/18 at [address] Amended: Links added.
[2018-07-18 18:00] VITALS: BP 135/86
[2018-07-18] MEDS: NUT.TX.IMP.RENAL FXN,LAC-REDUC (Nepro) 237 ML VANILLA PO SCH (18:00)
--- NOTE | 2018-07-18 19:00 | NUR ---
Problems reprioritized. Patient report given, questions answered & plan of care reviewed with ENRIQUE ESPAÑA.
--- NOTE | 2018-07-18 19:01 | NUR ---
Patient in room [facility]. I have received report from PATRIA Aaron and had the opportunity to ask questions and assume patient care.
[2018-07-18] MEDS: QUEtiapine 25mg tablet PO SCH (20:04)
[2018-07-19] VITALS (7 sets, daily range): BP systolic 118–137; BP diastolic 68–85
[2018-07-19] MEDS: HYDROcodone/acetaminophen 10/325mg tab PO PRN ×2 (05:48→20:13)
--- NOTE | 2018-07-19 06:08 | NUR ---
Problems reprioritized. Patient report given, questions answered & plan of care reviewed with PATRIA Alan.
--- NOTE | 2018-07-19 06:10 | NUR ---
Patient in room [facility]. I have received report from PATRIA Vega and had the opportunity to ask questions and assume patient care.
--- NOTE | 2018-07-19 06:30 | NUR ---
Patient in room [facility]. I have received report from Dayanna ESPAÑA and had the opportunity to ask questions and assume patient care.
[2018-07-19] MEDS: ipratropium/albuterol 3ml nebule NEB SCH ×4 (07:00→20:35)
[2018-07-19] MEDS: pantoprazole 40mg Tablet.DR PO SCH ×2 (08:00→20:14)
[2018-07-19] MEDS: multivitamins, therapeutics tablet PO SCH (08:00)
[2018-07-19] MEDS: atorvastatin 20mg tablet PO SCH (08:00)
[2018-07-19] MEDS: LORazepam 0.5 MG tablet PO SCH ×2 (08:00→20:14)
[2018-07-19] MEDS: docusate sod 100mg capsule PO SCH ×2 (08:00→20:14)
[2018-07-19] MEDS: duloxetine 30mg CAPSULE.DR PO SCH (08:00)
[2018-07-19] MEDS: budesonide 0.5mg/2ml UD nebule IH SCH ×2 (08:00→20:36)
[2018-07-19] MEDS: carVEDilol 3.125mg tablet PO SCH ×2 (08:00→20:13)
--- NOTE | 2018-07-19 11:47 | NUR ---
Student Medication Administration: For this medication-pass time frame, all medication were reviewed, dispensed, administered and documented per hospital policy by radha Sinha student.
--- NOTE | 2018-07-19 12:00 | NUR ---
Patient in room [facility]. I have received report from Ernestine, student nurse and had the opportunity to ask questions and assume patient care.
--- NOTE | 2018-07-19 12:09 | NUR ---
Student documentation: I have reviewed and agree with all interventions, assessments performed and documented by Ernestine, nursing specialist.
--- NOTE | 2018-07-19 12:10 | NUR ---
Student Medication Administration: For this medication-pass time frame, all medication were reviewed, dispensed, administered and documented per hospital policy by radha Sinha student.
--- NOTE | 2018-07-19 12:15 | NUR ---
Problems reprioritized. Patient report given, questions answered & plan of care reviewed with Dayanna RN.
--- NOTE | 2018-07-19 12:30 | NUR ---
PATIENT WAS UNABLE TO STAND; UNABLE TO OBTAIN STANDING ORTHOSTATIC VITAL SIGNS Addendum: 07/19/18 at 1254 by Fidelina SALVADOR Amended: Links added.
--- NOTE | 2018-07-19 18:44 | NUR ---
Problems reprioritized. Patient report given, questions answered & plan of care reviewed with PATRIA Vega.
--- NOTE | 2018-07-19 18:45 | NUR ---
Patient in room [facility]. I have received report from PATRIA Alan and had the opportunity to ask questions and assume patient care.
[2018-07-19] MEDS: QUEtiapine 25mg tablet PO SCH (20:14)
[2018-07-20] VITALS: BP 109/66
[2018-07-20 06:34] LABS: BASOPHILS % (AUTO) 0.2 % (0-1); EOSINOPHILS # (AUTO) 0.1 X10'3 (0-0.9); EOSINOPHILS % (AUTO) 0.9 % (0-6); HEMATOCRIT 31.9 % (35.0-45.0); HEMOGLOBIN 9.4 g/dl (12.0-16.0); LYMPHOCYTES # (AUTO) 0.6 X10'3 (1.1-4.8); LYMPHOCYTES % (AUTO) 9.1 % (21-51); MEAN CORPUSCULAR HEMOGLOBIN 23.9 PG (27.0-31.0); MEAN CORPUSCULAR HGB CONC 29.7 g/dL (33.0-36.5); MEAN CORPUSCULAR VOLUME 80.7 FL (78-98); MEAN PLATELET VOLUME 8.3 FL (7.4-10.4); MONOCYTES # (AUTO) 0.5 X10'3 (0-0.9); MONOCYTES % (AUTO) 7.7 % (2-12); NEUTROPHILS # (AUTO) 5.6 X10'3 (1.8-7.7); NEUTROPHILS % (AUTO) 82.1 % (42-75); PLATELET COUNT 180 X10'3 (140-440); RED BLOOD COUNT 3.95 X10'6 (4.20-5.60); RED CELL DISTRIBUTION WIDTH 20.7 % (11.5-14.5); WHITE BLOOD COUNT 6.8 X10'3 (4.5-11.0)
--- NOTE | 2018-07-20 06:35 | NUR ---
Patient in room [facility]. I have received report from Gary ESPAÑA and had the opportunity to ask questions and assume patient care.
--- NOTE | 2018-07-20 06:40 | NUR ---
Problems reprioritized. Patient report given, questions answered & plan of care reviewed with PATRIA Ortiz.
[2018-07-20 06:46] LABS: ALANINE AMINOTRANSFERASE 112 U/L (12-78); ALBUMIN 1.9 G/DL (3.4-5.0); ALBUMIN/GLOBULIN RATIO 0.5 (1.1-1.5); ALKALINE PHOSPHATASE 348 IU/L (46-116); ANION GAP 9 (8-16); ASPARTATE AMINO TRANSFERASE 253 U/L (10-37); BILIRUBIN,TOTAL 1.6 MG/DL (0.1-1.0); BLOOD UREA NITROGEN 46 MG/DL (7-18); BUN/CREATININE RATIO 15.3 (6.6-38.0); CALCIUM 8.8 MG/DL (8.5-10.1); CHLORIDE 105 MMOL/L (99-107); GLUCOSE 105 MG/DL (70-104); MAGNESIUM 2.2 MG/DL (1.5-2.4); POTASSIUM 4.3 MMOL/L (3.5-5.1); SODIUM 140 MMOL/L (135-145); TOTAL CARBON DIOXIDE 26.4 MMOL/L (24-32); TOTAL PROTEIN 5.9 G/DL (6.4-8.2); eGFR 15 ML/MIN
[2018-07-20] MEDS: SODIUM BICARBONATE IV SCH ×2 (06:53→06:54)
[2018-07-20] MEDS: SODIUM CHLORIDE 0.45% IV SCH ×2 (06:53→06:54)
[2018-07-20 07:22] VITALS: BP 103/79
[2018-07-20] MEDS: ipratropium/albuterol 3ml nebule NEB SCH ×4 (07:43→19:32)
[2018-07-20] MEDS: budesonide 0.5mg/2ml UD nebule IH SCH ×2 (07:43→19:32)
[2018-07-20] MEDS: atorvastatin 20mg tablet PO SCH (08:00)
[2018-07-20] MEDS ORDERED: heparin 1,000 units/ml 10ml inj HE ONE ×2 (08:00)
[2018-07-20] MEDS ORDERED: epoetin 20,000 units/ml inj IV ONE (08:00)
[2018-07-20] MEDS: LORazepam 0.5 MG tablet PO SCH (08:00)
[2018-07-20] MEDS ORDERED: heparin 1,000unit/ml 10ml vial 10 ML IV ONE (08:00)
[2018-07-20] MEDS: pantoprazole 40mg Tablet.DR PO SCH (08:00)
[2018-07-20] MEDS: duloxetine 30mg CAPSULE.DR PO SCH (08:00)
[2018-07-20] MEDS ORDERED: albumin (Human) 5% 250ml 250 ML IV PRN (08:00)
[2018-07-20] MEDS ORDERED: normal saline 1000ml 250 ML IV PRN (08:00)
[2018-07-20] MEDS: docusate sod 100mg capsule PO SCH (08:00)
[2018-07-20] MEDS: carVEDilol 3.125mg tablet PO SCH (08:00)
[2018-07-20] MEDS: multivitamins, therapeutics tablet PO SCH (08:00)
[2018-07-20 09:19] LABS: ANISOCYTOSIS 3+; PLATELET ESTIMATE NORMAL
[2018-07-20 09:20] LABS: HYPOCHROMASIA 1+
[2018-07-20 11:46] VITALS: BP 120/75
--- NOTE | 2018-07-20 18:19 | NUR ---
Problems reprioritized. Patient report given, questions answered & plan of care reviewed with Sammie ESPAÑA.
--- NOTE | 2018-07-20 18:24 | NUR ---
Student documentation: I have reviewed and agree with all interventions, assessments performed and documented by Alissa Student Nurse. Student Medication Administration: For this medication-pass time frame, all medication were reviewed, dispensed, administered and documented per hospital policy by Alissa Student Nurse.
[2018-07-20 20:00] VITALS: BP 119/70
[2018-07-21] MEDS: pantoprazole 40mg Tablet.DR PO SCH ×3 (00:26→19:55)
[2018-07-21] MEDS: LORazepam 0.5 MG tablet PO SCH ×3 (00:26→19:54)
[2018-07-21] MEDS: QUEtiapine 25mg tablet PO SCH ×2 (00:26→19:55)
[2018-07-21] MEDS: carVEDilol 3.125mg tablet PO SCH ×3 (00:26→19:54)
--- NOTE | 2018-07-21 00:30 | NUR ---
Patient finished with HD. Vital signs stable BP- 129/77 hr-104. All night medications were given late due to HD.
[2018-07-21] MEDS: docusate sod 100mg capsule PO SCH ×3 (00:40→19:55)
--- NOTE | 2018-07-21 00:40 | NUR ---
HD removed 2L tonight.
[2018-07-21 06:18] LABS: BASOPHILS % (AUTO) 0.3 % (0-1); EOSINOPHILS # (AUTO) 0.1 X10'3 (0-0.9); EOSINOPHILS % (AUTO) 1.3 % (0-6); HEMATOCRIT 28.2 % (35.0-45.0); HEMOGLOBIN 8.8 g/dl (12.0-16.0); LYMPHOCYTES # (AUTO) 0.6 X10'3 (1.1-4.8); LYMPHOCYTES % (AUTO) 8.4 % (21-51); MEAN CORPUSCULAR HEMOGLOBIN 24.5 PG (27.0-31.0); MEAN CORPUSCULAR VOLUME 78.8 FL (78-98); MONOCYTES # (AUTO) 0.5 X10'3 (0-0.9); MONOCYTES % (AUTO) 7.9 % (2-12); NEUTROPHILS # (AUTO) 5.5 X10'3 (1.8-7.7); NEUTROPHILS % (AUTO) 82.1 % (42-75); PLATELET COUNT 172 X10'3 (140-440); RED BLOOD COUNT 3.58 X10'6 (4.20-5.60); RED CELL DISTRIBUTION WIDTH 20.4 % (11.5-14.5); WHITE BLOOD COUNT 6.7 X10'3 (4.5-11.0)
[2018-07-21 06:30] LABS: ALANINE AMINOTRANSFERASE 146 U/L (12-78); ALBUMIN 1.9 G/DL (3.4-5.0); ALBUMIN/GLOBULIN RATIO 0.5 (1.1-1.5); ALKALINE PHOSPHATASE 299 IU/L (46-116); ANION GAP 5 (8-16); ASPARTATE AMINO TRANSFERASE 323 U/L (10-37); BILIRUBIN,TOTAL 1.9 MG/DL (0.1-1.0); BLOOD UREA NITROGEN 26 MG/DL (7-18); BUN/CREATININE RATIO 12.3 (6.6-38.0); CALCIUM 8.2 MG/DL (8.5-10.1); CHLORIDE 105 MMOL/L (99-107); CREATININE 2.11 MG/DL (0.40-0.90); GLUCOSE 87 MG/DL (70-104); MAGNESIUM 1.8 MG/DL (1.5-2.4); PHOSPHORUS 2.8 MG/DL (2.3-4.5); POTASSIUM 3.8 MMOL/L (3.5-5.1); SODIUM 138 MMOL/L (135-145); TOTAL CARBON DIOXIDE 27.8 MMOL/L (24-32); TOTAL PROTEIN 5.5 G/DL (6.4-8.2); eGFR 23 ML/MIN
--- NOTE | 2018-07-21 06:36 | NUR ---
Patient in room [facility]. I have received report from Sammie ESPAÑA and had the opportunity to ask questions and assume patient care.
[2018-07-21 06:57] LABS: ANISOCYTOSIS 3+; HYPOCHROMASIA 2+; MICROCYTOSIS 1+; PLATELET ESTIMATE NORMAL
[2018-07-21 07:32] VITALS: BP 115/73
[2018-07-21] MEDS: ipratropium/albuterol 3ml nebule NEB SCH ×4 (07:41→20:07)
[2018-07-21] MEDS: budesonide 0.5mg/2ml UD nebule IH SCH ×2 (07:41→20:07)
[2018-07-21] MEDS: atorvastatin 20mg tablet PO SCH (07:57)
[2018-07-21] MEDS: duloxetine 30mg CAPSULE.DR PO SCH (07:57)
[2018-07-21] MEDS: multivitamins, therapeutics tablet PO SCH (07:58)
[2018-07-21 11:25] VITALS: BP 138/79
--- NOTE | 2018-07-21 18:27 | NUR ---
Problems reprioritized. Patient report given, questions answered & plan of care reviewed with Sammie ESPAÑA.
--- NOTE | 2018-07-21 19:59 | NUR ---
Patient compliant with night medications. Able to swallow all medications in applesauce without difficulty. Patient drank 75% of her BOOST PROTEIN SHAKE tonight.
[2018-07-21 20:00] VITALS: BP 125/80
[2018-07-22] VITALS: BP 127/68
[2018-07-22 04:41] LABS: BASOPHILS % (AUTO) 0.3 % (0-1); EOSINOPHILS % (AUTO) 0.5 % (0-6); HEMATOCRIT 27.5 % (35.0-45.0); HEMOGLOBIN 8.7 g/dl (12.0-16.0); LYMPHOCYTES # (AUTO) 0.7 X10'3 (1.1-4.8); LYMPHOCYTES % (AUTO) 11.4 % (21-51); MEAN CORPUSCULAR HEMOGLOBIN 24.5 PG (27.0-31.0); MEAN CORPUSCULAR HGB CONC 31.5 g/dL (33.0-36.5); MEAN PLATELET VOLUME 7.9 FL (7.4-10.4); MONOCYTES # (AUTO) 0.8 X10'3 (0-0.9); NEUTROPHILS # (AUTO) 4.5 X10'3 (1.8-7.7); NEUTROPHILS % (AUTO) 74.8 % (42-75); PLATELET COUNT 160 X10'3 (140-440); RED BLOOD COUNT 3.53 X10'6 (4.20-5.60); RED CELL DISTRIBUTION WIDTH 20.5 % (11.5-14.5); WHITE BLOOD COUNT 6.1 X10'3 (4.5-11.0)
[2018-07-22 04:55] LABS: ALANINE AMINOTRANSFERASE 205 U/L (12-78); ALBUMIN 1.8 G/DL (3.4-5.0); ALBUMIN/GLOBULIN RATIO 0.5 (1.1-1.5); ALKALINE PHOSPHATASE 290 IU/L (46-116); ANION GAP 8 (8-16); ASPARTATE AMINO TRANSFERASE 414 U/L (10-37); BILIRUBIN,TOTAL 1.6 MG/DL (0.1-1.0); BLOOD UREA NITROGEN 39 MG/DL (7-18); BUN/CREATININE RATIO 12.9 (6.6-38.0); CALCIUM 8.5 MG/DL (8.5-10.1); CHLORIDE 105 MMOL/L (99-107); CREATININE 3.02 MG/DL (0.40-0.90); GLUCOSE 114 MG/DL (70-104); PHOSPHORUS 3.5 MG/DL (2.3-4.5); POTASSIUM 4.1 MMOL/L (3.5-5.1); SODIUM 140 MMOL/L (135-145); TOTAL CARBON DIOXIDE 26.8 MMOL/L (24-32); TOTAL PROTEIN 5.6 G/DL (6.4-8.2); eGFR 15 ML/MIN
--- NOTE | 2018-07-22 06:37 | NUR ---
Report given to Gloria ESPAÑA.
--- NOTE | 2018-07-22 06:45 | NUR ---
Patient in room [facility]. I have received report from Sammie ESPAÑA and had the opportunity to ask questions and assume patient care.
[2018-07-22 07:00] VITALS: BP 132/70
[2018-07-22] MEDS: budesonide 0.5mg/2ml UD nebule IH SCH ×2 (07:22→19:11)
[2018-07-22] MEDS: ipratropium/albuterol 3ml nebule NEB SCH ×4 (07:22→19:11)
[2018-07-22] MEDS ORDERED: heparin 1,000 units/ml 10ml inj HE ONE ×2 (08:00)
[2018-07-22] MEDS: NUT.TX.IMP.RENAL FXN,LAC-REDUC (Nepro) 237 ML VANILLA PO SCH ×3 (08:00→18:00)
[2018-07-22] MEDS: LORazepam 0.5 MG tablet PO SCH ×2 (08:00→20:30)
[2018-07-22] MEDS ORDERED: normal saline 1000ml 250 ML IV PRN (08:00)
[2018-07-22] MEDS ORDERED: epoetin 20,000 units/ml inj IV ONE (08:00)
[2018-07-22] MEDS ORDERED: heparin 1,000unit/ml 10ml vial 10 ML IV ONE (08:00)
[2018-07-22] MEDS: duloxetine 30mg CAPSULE.DR PO SCH (08:07)
[2018-07-22] MEDS: atorvastatin 20mg tablet PO SCH (08:07)
[2018-07-22] MEDS: multivitamins, therapeutics tablet PO SCH (08:08)
[2018-07-22] MEDS: pantoprazole 40mg Tablet.DR PO SCH ×2 (08:08→20:30)
[2018-07-22] MEDS: docusate sod 100mg capsule PO SCH ×2 (08:08→20:00)
[2018-07-22] MEDS: carVEDilol 3.125mg tablet PO SCH ×2 (08:17→20:30)
[2018-07-22 08:26] LABS: PLATELET ESTIMATE NORMAL
[2018-07-22 08:27] LABS: ANISOCYTOSIS 3+; ELLIPTOCYTES FEW; MICROCYTOSIS 1+; SCHISTOCYTES FEW
[2018-07-22 08:28] LABS: HYPOCHROMASIA 2+; POLYCHROMASIA FEW
[2018-07-22 11:00] VITALS: BP 120/78
--- NOTE | 2018-07-22 17:04 | NUR ---
Reassessment 07/22: Very poor PO Intake since admission. MD notified with following (Very Poor PO intake since admission. Would benefit from corpak for tube feedings for optimal nutrition while pending placement). Spoke with MD who placed order for corpak. Spoke with bedside RN regarding tube feeding. Corpak will need to be placed and confirmed prior to administration of tube feedings. Discussed with bedside RN that RD recs will be available if corpak placed after hours. Will follow up tomorrow morning. Pt is AOx2 today. refusing meals/0-25% PO since admission. Not taking in ONS. Pt remains on routine HD for ESRD, she is not meeting protein/energy needs with PO diet. Rec: 1. When corpak is placed recommend continuous tube feedings with Nepro. Recommend to start at 20 ml/hr and advance by 20 ml q 8 hours to goal rate of 45 ml/hr will provide total volume of 1080 ml, 1944 cals, 87 gm protein, and 785 ml free water. 2. Additional water flush 125 ml q 4 hours when TF begin 3. Prealbumin q Thursday/ 4. Daily weights Addendum: 07/22/18 at [address] Amended: Links added.
--- NOTE | 2018-07-22 17:17 | NUR ---
Dr. Burk confirmed to me that he already spoke to patient's daughter about the tube feeding and that the daughter is agreeable to this.
--- NOTE | 2018-07-22 17:38 | NUR ---
Corpak tube inserted into the left nares by SN Dobson assisted by Wendi ESPAÑA and Katrina RN. Patient tolerated the procedure well. Corpak tube secured with tape. Instructed patient not to pull out her Corpak tube. Chest Xray ordered to confirm placement.
--- NOTE | 2018-07-22 17:49 | NUR ---
Patient pulled out her Corpak tube, small amount of blood from her nose was noted.
--- NOTE | 2018-07-22 18:19 | NUR ---
Problems reprioritized. Patient report given, questions answered & plan of care reviewed with Yaa ESPAÑA.
--- NOTE | 2018-07-22 18:24 | NUR ---
Received report from Katrina Mares pt is awake dinner tray in front of pt, tabs alarm on
[2018-07-22 19:20] VITALS: BP 136/79
[2018-07-22] MEDS: QUEtiapine 25mg tablet PO SCH (20:31)
--- NOTE | 2018-07-22 21:47 | NUR ---
Spoke with pt about placing corpak in patient pt stated no she did not want that, I explained that she is not really eating any food and that we want to pt to get nutrition, and she still refused.
--- NOTE | 2018-07-22 22:30 | NUR ---
Patient in room [facility]. I have received report from PATRIA GUTIÉRREZ and had the opportunity to ask questions and assume patient care. Addendum: 07/22/18 at 2321 by Artie Rodriguez RN Amended: Links added.
--- NOTE | 2018-07-22 22:33 | NUR ---
Gave report to Gillian ESPAÑA pt is laying in bed, tabs alarm connected to gown, in no apparent distress
[2018-07-23] VITALS: BP 135/73
[2018-07-23] MEDS: HYDROcodone/acetaminophen 10/325mg tab PO PRN (05:55)
[2018-07-23 06:23] LABS: BASOPHILS % (AUTO) 0.2 % (0-1); EOSINOPHILS % (AUTO) 0.1 % (0-6); HEMATOCRIT 30.8 % (35.0-45.0); HEMOGLOBIN 9.5 g/dl (12.0-16.0); LYMPHOCYTES % (AUTO) 13.6 % (21-51); MEAN CORPUSCULAR HEMOGLOBIN 24.2 PG (27.0-31.0); MEAN CORPUSCULAR HGB CONC 30.9 g/dL (33.0-36.5); MEAN CORPUSCULAR VOLUME 78.3 FL (78-98); MEAN PLATELET VOLUME 8.4 FL (7.4-10.4); MONOCYTES # (AUTO) 0.9 X10'3 (0-0.9); MONOCYTES % (AUTO) 13.1 % (2-12); NEUTROPHILS # (AUTO) 5.2 X10'3 (1.8-7.7); PLATELET COUNT 192 X10'3 (140-440); RED BLOOD COUNT 3.93 X10'6 (4.20-5.60); RED CELL DISTRIBUTION WIDTH 20.9 % (11.5-14.5); WHITE BLOOD COUNT 7.1 X10'3 (4.5-11.0)
--- NOTE | 2018-07-23 06:38 | NUR ---
Problems reprioritized. Patient report given, questions answered & plan of care reviewed with PATRIA Maxwell. Addendum: 07/23/18 at 0639 by Artie Rodriguez RN Amended: Links added.
[2018-07-23 06:40] LABS: ALANINE AMINOTRANSFERASE 214 U/L (12-78); ALBUMIN 2.1 G/DL (3.4-5.0); ALBUMIN/GLOBULIN RATIO 0.5 (1.1-1.5); ALKALINE PHOSPHATASE 285 IU/L (46-116); ANION GAP 11 (8-16); ASPARTATE AMINO TRANSFERASE 371 U/L (10-37); BLOOD UREA NITROGEN 28 MG/DL (7-18); BUN/CREATININE RATIO 12.4 (6.6-38.0); CALCIUM 8.8 MG/DL (8.5-10.1); CHLORIDE 102 MMOL/L (99-107); CREATININE 2.26 MG/DL (0.40-0.90); GLUCOSE 98 MG/DL (70-104); MAGNESIUM 2.1 MG/DL (1.5-2.4); POTASSIUM 4.5 MMOL/L (3.5-5.1); SODIUM 138 MMOL/L (135-145); TOTAL CARBON DIOXIDE 25.5 MMOL/L (24-32); TOTAL PROTEIN 6.2 G/DL (6.4-8.2); eGFR 21 ML/MIN
[2018-07-23 07:10] LABS: ANISOCYTOSIS 3+; HYPOCHROMASIA 1+; MICROCYTOSIS 1+; PLATELET ESTIMATE NORMAL; POLYCHROMASIA 1+
[2018-07-23 07:11] LABS: LARGE PLATELETS FEW
[2018-07-23 07:30] VITALS: BP 126/74
[2018-07-23] MEDS: budesonide 0.5mg/2ml UD nebule IH SCH (07:33)
[2018-07-23] MEDS: ipratropium/albuterol 3ml nebule NEB SCH ×4 (07:33→19:35)
[2018-07-23] MEDS: duloxetine 30mg CAPSULE.DR PO SCH (08:00)
[2018-07-23] MEDS: pantoprazole 40mg Tablet.DR PO SCH ×2 (08:00→20:30)
[2018-07-23] MEDS: multivitamins, therapeutics tablet PO SCH (08:00)
[2018-07-23] MEDS: docusate sod 100mg capsule PO SCH (08:00)
[2018-07-23] MEDS: atorvastatin 20mg tablet PO SCH (08:00)
[2018-07-23] MEDS: LORazepam 0.5 MG tablet PO SCH ×2 (08:13→20:30)
[2018-07-23] MEDS: carVEDilol 3.125mg tablet PO SCH (08:14)
[2018-07-23] MEDS: NUT.TX.IMP.RENAL FXN,LAC-REDUC (Nepro) 237 ML VANILLA PO SCH ×3 (08:15→17:51)
[2018-07-23 12:14] VITALS: BP 111/57
--- NOTE | 2018-07-23 12:28 | NUR ---
Follow up: Corpak was placed however pt pulled it out and now refusing to have it replaced, d/w bedside RN, RN will discuss with . Currently unable to provide tube feedings and pt still refusing meals and oral supplement. Addendum: 07/23/18 at [address] Amended: Links added.
[2018-07-23] MEDS ORDERED: LORazepam 2 mg/ml vial IV PRN (13:00)
--- NOTE | 2018-07-23 13:17 | NUR ---
I have spoken with Haylie Phan, family member/POA of Radha Peterson and have confirmed with Dr Burk that Haylie wishes for her mother to be comfort care at this time.
[2018-07-23] MEDS ORDERED: morphine 10mg/0.5ml (conc. morphine) oral syringe PO SCH (14:00)
[2018-07-23] MEDS ORDERED: nystatin 15 GM powder TP PRN (16:20)
--- NOTE | 2018-07-23 18:23 | NUR ---
Problems reprioritized. Patient report given, questions answered & plan of care reviewed with PATRIA REYNOSO.
[2018-07-23] MEDS: morphine 10mg/0.5ml (conc. morphine) oral syringe PO PRN (19:11)
[2018-07-23 20:00] VITALS: BP 124/75
[2018-07-23] MEDS: QUEtiapine 25mg tablet PO SCH (20:30)
--- NOTE | 2018-07-24 06:32 | NUR ---
Problems reprioritized. Patient report given, questions answered & plan of care reviewed with Alexa ESPAÑA .
[2018-07-24] MEDS: ipratropium/albuterol 3ml nebule NEB SCH ×4 (07:00→20:00)
[2018-07-24 07:35] VITALS: BP 122/69
[2018-07-24] MEDS: LORazepam 0.5 MG tablet PO SCH ×2 (08:00→20:22)
[2018-07-24] MEDS: pantoprazole 40mg Tablet.DR PO SCH ×2 (08:00→20:22)
[2018-07-24] MEDS: NUT.TX.IMP.RENAL FXN,LAC-REDUC (Nepro) 237 ML VANILLA PO SCH ×3 (08:00→18:00)
[2018-07-24] MEDS: morphine 10mg/0.5ml (conc. morphine) oral syringe PO PRN (08:35)
--- NOTE | 2018-07-24 12:38 | NUR ---
reassessment: patient refuses corpak. Pt and family decided on comfort care measures including discontinuing HD. Will follow per protocol. Addendum: 07/24/18 at [address] Amended: Links added.
--- NOTE | 2018-07-24 18:05 | NUR ---
Received report from Alexa ESPAÑA pt is awake in no apparent distress, tabs alarm on
--- NOTE | 2018-07-24 18:16 | NUR ---
Problems reprioritized. Patient report given, questions answered & plan of care reviewed with PATRIA Bronson.
[2018-07-24 19:00] VITALS: BP 111/60
[2018-07-24 19:10] LABS: HBSAG SCREEN Negative (Negative)
[2018-07-24] MEDS: QUEtiapine 25mg tablet PO SCH (20:22)
[2018-07-25] MEDS: morphine 10mg/0.5ml (conc. morphine) oral syringe PO PRN (01:19)
--- NOTE | 2018-07-25 06:19 | NUR ---
Problems reprioritized. Patient report given, questions answered & plan of care reviewed with Ledy ESPAÑA .
--- NOTE | 2018-07-25 06:34 | NUR ---
I have received report from Aiyana ESPAÑA and had the opportunity to ask questions and assume patient care.
[2018-07-25] MEDS: NUT.TX.IMP.RENAL FXN,LAC-REDUC (Nepro) 237 ML VANILLA PO SCH ×3 (07:41→19:16)
[2018-07-25] MEDS: pantoprazole 40mg Tablet.DR PO SCH ×2 (07:44→20:05)
[2018-07-25] MEDS: LORazepam 0.5 MG tablet PO SCH ×2 (07:44→20:05)
[2018-07-25 08:00] VITALS: BP 95/59
[2018-07-25] MEDS: ipratropium/albuterol 3ml nebule NEB SCH (09:09)
--- NOTE | 2018-07-25 10:03 | NUR ---
Patient refused breakfast, offered to feed patient but still refused. Patient took two bites of oatmeal which did not equal to 1 teaspoon. Will continue to offer assistance in feeding. Addendum: 07/25/18 at 1004 by Ledy Maurer RN Amended: Links added.
[2018-07-25] MEDS ORDERED: ipratropium/albuterol 3ml nebule NEB PRN (12:10)
--- NOTE | 2018-07-25 18:15 | NUR ---
Problems reprioritized. Patient report given, questions answered & plan of care reviewed with Sammie ESPAÑA.
--- NOTE | 2018-07-25 19:40 | NUR ---
With assistance and encouragement patient able consume 50% of her stew tonight. Patient also drank 50% of her protein shake.
[2018-07-25 20:00] VITALS: BP 99/54
[2018-07-25] MEDS: QUEtiapine 25mg tablet PO SCH (20:05)
--- NOTE | 2018-07-26 06:26 | NUR ---
Problems reprioritized. Patient report given, questions answered & plan of care reviewed with Wendi ESPAÑA.
[2018-07-26 07:00] VITALS: BP 92/58
--- NOTE | 2018-07-26 07:00 | NUR ---
Patient in room [facility]. I have received report from Sammie and had the opportunity to ask questions and assume patient care. Addendum: 07/26/18 at 1224 by Wendi Ventura RN Amended: Links added.
[2018-07-26] MEDS: morphine 10mg/0.5ml (conc. morphine) oral syringe PO PRN ×2 (11:30→21:43)
--- NOTE | 2018-07-26 18:19 | NUR ---
Problems reprioritized. Patient report given, questions answered & plan of care reviewed with Sammie. Addendum: 07/26/18 at 1820 by Wendi Ventura RN Amended: Links added.
[2018-07-26 20:00] VITALS: BP 71/40
[2018-07-26] MEDS: QUEtiapine 25mg tablet PO SCH (20:58)
--- NOTE | 2018-07-26 21:20 | NUR ---
Patient given a bed bath tonight. Patient appears to be declining more. Suction connected and suctioned PRN. Patient given 1 dose of roxanol tonight, Patient moaning and grimacing during repositioning.
--- NOTE | 2018-07-26 21:56 | NUR ---
Daughter Haylie called [employer] and left a Voice mail. Informing her of the patient's condition, not sure if she lived nearby and if wanted to come in to see her before her condition changes. Patient does not have a mortuary of choice written down. Will need to address with daughter when she calls back.
--- NOTE | 2018-07-26 22:30 | NUR ---
Daughter Haylie called back. She lives down in [facility]. They have not discuss what mortuary, and is unsure of one at this time. States her mom has only been living in [place] for 5 years. Nurse inform her that There is an [facility] here in [place]. Daughter is agreeable to that mortuary for now.
--- NOTE | 2018-07-27 02:00 | NUR ---
Patient's Caregiver Colleen here to be with the patient. Patient's Daughter Haylie is very Thankful she can come and be with her mom. ALL OF PATIENT'S BELONGINGS BAGGED AND GIVEN TO MEDIA OPERATOR. EXCEPT DENTURES.
[2018-07-27] MEDS: morphine 10mg/0.5ml (conc. morphine) oral syringe PO PRN (02:03)
[2018-07-27 07:00] VITALS: BP 84/38
--- NOTE | 2018-07-27 07:06 | NUR ---
Patient in room [facility]. I have received report from SINAI ESPAÑA and had the opportunity to ask questions and assume patient care.
--- NOTE | 2018-07-27 11:28 | NUR ---
CALLED [employer], PER FAMILIES REQUEST FOR SOFTWARE PRODUCT SPECIALIST. SPOKE WITH KATIE
--- NOTE | 2018-07-27 14:05 | NUR ---
mortuary came to [place] [facility] pt
--- NOTE | 2018-07-29 11:07 | NUR ---
dialysis charge. remove 07/21 Addendum: 07/29/18 at 1109 by Sumi BUSTOS RN Amended: Links added.
== END 2018-07-27 10:53 | disposition expired | DRG 673 ==
LOC: ER 17:23 → ED HOLD 20:59 → SUR 3N 22:15
PROVIDERS: ADMIT Internal Medicine; ATTEND Internal Medicine
PROC: 30233N1 Transfusion of Nonautologous Red Blood Cells into Peripheral Vein, Percutaneous Approach (ICD-10-PCS; 2018-07-09)
PROC: 0JH63XZ Insertion of Tunneled Vascular Access Device into Chest Subcutaneous Tissue and Fascia, Percutaneous Approach (ICD-10-PCS; 2018-07-16)
PROC: 5A1D70Z Performance of Urinary Filtration, Intermittent, Less than 6 Hours Per Day (ICD-10-PCS; 2018-07-16)
PROC: 02H633Z Insertion of Infusion Device into Right Atrium, Percutaneous Approach (ICD-10-PCS; 2018-07-16)
PROC: B2141ZZ Fluoroscopy of Right Heart using Low Osmolar Contrast (ICD-10-PCS; 2018-07-16)
PROC: B548ZZA Ultrasonography of Superior Vena Cava, Guidance (ICD-10-PCS; 2018-07-16)
PROC: 5A1D70Z Performance of Urinary Filtration, Intermittent, Less than 6 Hours Per Day (ICD-10-PCS; 2018-07-18)
PROC: 5A1D70Z Performance of Urinary Filtration, Intermittent, Less than 6 Hours Per Day (ICD-10-PCS; 2018-07-20)
PROC: 5A1D70Z Performance of Urinary Filtration, Intermittent, Less than 6 Hours Per Day (ICD-10-PCS; principal; 2018-07-22)
DX: N17.9 Acute kidney failure, unspecified (principal); G93.41 Metabolic encephalopathy; E43 Unspecified severe protein-calorie malnutrition; K92.1 Melena; D62 Acute posthemorrhagic anemia; J96.11 Chronic respiratory failure with hypoxia; L03.119 Cellulitis of unspecified part of limb; I13.0 Hypertensive heart and chronic kidney disease with heart failure and stage 1 through stage 4 chronic kidney disease, or unspecified chronic kidney disease; N18.4 Chronic kidney disease, stage 4 (severe); E78.5 Hyperlipidemia, unspecified; E86.0 Dehydration; I25.10 Atherosclerotic heart disease of native coronary artery without angina pectoris; I48.0 Paroxysmal atrial fibrillation; I50.9 Heart failure, unspecified; J44.9 Chronic obstructive pulmonary disease, unspecified; K21.9 Gastro-esophageal reflux disease without esophagitis; Z51.5 Encounter for palliative care; F32.9 Major depressive disorder, single episode, unspecified; R39.11 Hesitancy of micturition; K30 Functional dyspepsia; M54.9 Dorsalgia, unspecified; F41.9 Anxiety disorder, unspecified; G89.29 Other chronic pain; I48.91 Unspecified atrial fibrillation; R33.9 Retention of urine, unspecified; M19.90 Unspecified osteoarthritis, unspecified site; Z53.20 Procedure and treatment not carried out because of patient's decision for unspecified reasons; Z66 Do not resuscitate; Z60.2 Problems related to living alone; Z86.73 Personal history of transient ischemic attack (TIA), and cerebral infarction without residual deficits; Z86.79 Personal history of other diseases of the circulatory system; I25.2 Old myocardial infarction; Z87.442 Personal history of urinary calculi; Z87.891 Personal history of nicotine dependence; Z90.710 Acquired absence of both cervix and uterus; Z68.21 Body mass index [BMI] 21.0-21.9, adult; Z88.6 Allergy status to analgesic agent; Z88.0 Allergy status to penicillin; Z98.51 Tubal ligation status; Z81.1 Family history of alcohol abuse and dependence; Z80.9 Family history of malignant neoplasm, unspecified; Z79.899 Other long term (current) drug therapy
CPT/HCPCS: 36415; 36558; 71045; 74176; 76775; 76937; 77001; 80048; 80053; 81001; 82272; 82570; 82948; 83735; 83880; 83935; 84100; 84300; 84484; 85025; 85027; 85610; 86677; 86885; 86900; 86901; 86920; 87070; 87088; 87340; 90935; 93005; 93975; 94640; 94760; 96374; 96375; 97110; 97116; 97161; 97530; 99285; 99291; A9270; C1750; C1894; C9113; G0257; G0378; J0885; J1644; J2001; J2150; J2250; J3010; J7030; J7626; P9016